=== PATIENT | female | born 1950 | race Caucasian/White ===

== ENCOUNTER → 2019-08-29 11:20 | Outpatient (CLI) | payer OTHER, SELFPAY ==
--- NOTE | 2019-08-29 11:23 | DI.RAD.S_ITS ---
PROCEDURE: XR HIP W PEL IF DONE LT MIN 4V INDICATIONS: Left greater than right hip pain TECHNIQUE: AP pelvis with lateral view(s) of the bilateral hip(s). COMPARISON: None. FINDINGS: Bones: No acute displaced fractures or dislocations. There is subtle buttressing along the left medial femoral neck. Pelvic ring appears intact. Moderate left femoral acetabular joint space loss, mainly along the superomedial aspect. Mild subcortical sclerosis along the acetabulum and moderate femoral head spurs. Mild superior joint space loss and mild marginal spurs in the right femoral acetabular joint. No suspicious bony lesions. Soft tissues: The visualized bowel gas pattern is normal. No suspicious soft tissue calcifications. IMPRESSION: 1. Moderate arthritic changes in the left hip. 2. Mild arthritic changes of the right hip. 3. Subtle buttressing along the left medial femoral neck indicate healing insufficiency fracture. Consider MRI. Dictated by: Carolina Ruiz M.D. on 08/29/2019 at 12:40 Approved by: Carolina Ruiz M.D. on 08/29/2019 at 12:42
== END ==
PROVIDERS: Family Provider Physician Assistant Medical; PCP Physician Assistant Medical; Visit Provider Physical Medicine & Rehabilitation
DX: M25.552 Pain in left hip (principal); M25.551 Pain in right hip
CPT/HCPCS: 73522; 99213

== ENCOUNTER → 2019-11-07 15:26 | Outpatient (CLI) | payer OTHER, SELFPAY ==
--- NOTE | 2019-11-07 15:31 | DI.RAD.S_ITS ---
PROCEDURE: XR LUMBAR SPINE MIN 4V INDICATIONS: LBP and Right greater than left LE symptoms TECHNIQUE: 5 views of the lumbar spine were acquired. COMPARISON: None. FINDINGS: Bones: 5 nonrib-bearing vertebrae are present. There is normal bony alignment. No vertebral body compression fractures. No suspicious bony lesions. Note is made of mild degenerative disc disease with mild disc height reduction at L4-5 and moderate such degeneration at L5-S1. Facet osteoarthritis is prominent at L4-5 and L5-S1 with associated grade 1 anterolisthesis of L4 on L5 as a result of ligamentous laxity. Soft tissues: Overlying bowel gas pattern is normal. No suspicious soft tissue calcifications. Oblique images: No pars defects. IMPRESSION: No pars interarticularis defects are found, no recent prior trauma or old compression fracture is seen. Note is made of relatively mild degenerative disc disease along the lumbosacral spine except at L5-S1 where it is moderate. Facet osteoarthritis, however, is quite pronounced at the L45 and L5-S1 levels resulting in ligamentous laxity with anterolisthesis and likelihood of significant spinal and foraminal stenosis at L4-5 and also foraminal stenosis likely is present at L5-S1. Dictated by: Manuel Rodriguez M.D. on 11/07/2019 at 16:32 Approved by: Manuel Rodriguez M.D. on 11/07/2019 at 16:34
--- NOTE | 2019-11-07 15:31 | DI.MRI.S_ITS ---
PROCEDURE: MR LUMBAR SPINE WO CON INDICATIONS: LBP and Right greater than left LE symptoms TECHNIQUE: Noncontrast sagittal T1 spin echo and T2 fast echo, sagittal STIR, axial T1 and T2 fast spin echo through the lumbar spine. In cases with scoliosis, additional coronal T2 fast spin echo may be performed. COMPARISON: [facility], CR, XR LUMBAR SPINE MIN 4V, 11/07/2019, 15:57. FINDINGS: Image quality: Excellent. Alignment and Curvature: Grade 1 degenerative anterolisthesis of L4 on L5 measuring 5 mm secondary to facet arthropathy. Other vertebral bodies are normally aligned. Bone Marrow: Marrow is of normal overall signal. No acute vertebral body compression fractures. Spinal Cord: Conus medullaris terminates at the L1 level. Visualized cord demonstrates normal signal and size. Paraspinous Soft Tissues: No paravertebral masses. T12-L1: No canal stenosis or foraminal stenosis. L1-L2: Mild disc bulge. Mild facet hypertrophy. No canal stenosis or foraminal stenosis. L2-L3: Minimal disc bulge. Mild facet hypertrophy. No canal stenosis or significant foraminal stenosis. L3-L4: Mild disc bulge. Mild facet ligament hypertrophy. No canal stenosis or foraminal stenosis. L4-L5: Moderate disc height loss. Prominent bilateral facet hypertrophy. Mild degenerative anterolisthesis of L4 on L5 measuring 5 mm. Moderate canal stenosis. Mild to moderate right foraminal narrowing. There is a small left facet joint cyst in the left foramen which is impinging on the left L4 nerve root in the foramen. Reference image 13/2 (T2 sagittal sequence) and image 20/4 (T2 axial sequence) L5-S1: Severe disc height loss and disc degeneration. Minimal central posterior disc protrusion. No canal stenosis. Mild facet hypertrophy. Mild bilateral foraminal narrowing. IMPRESSION: 1. At L4-L5, there is multifactorial moderate canal stenosis. Additionally, there is a small left foraminal facet joint cyst impinging on the left L4 nerve root in the left foramen. 2. Multilevel facet arthropathy, prominent at L4-L5. Dictated by: Edvin Sal M.D. on 11/07/2019 at 16:52 Approved by: Edvin Sal M.D. on 11/07/2019 at 16:59
== END ==
PROVIDERS: Family Provider Physician Assistant Medical; PCP Physician Assistant Medical; Referring Provider Physical Medicine & Rehabilitation; Visit Provider Physical Medicine & Rehabilitation
DX: M54.5 Low back pain (principal); M43.16 Spondylolisthesis, lumbar region; M47.26 Other spondylosis with radiculopathy, lumbar region; M47.27 Other spondylosis with radiculopathy, lumbosacral region; M48.061 Spinal stenosis, lumbar region without neurogenic claudication; M51.16 Intervertebral disc disorders with radiculopathy, lumbar region; M51.17 Intervertebral disc disorders with radiculopathy, lumbosacral region
CPT/HCPCS: 72110; 72148

== ENCOUNTER → 2020-03-03 09:56 | Outpatient (CLI) | payer OTHER, SELFPAY ==
[2020-03-04 19:44] LABS: COVID19 Sendout Not Detected (Not Detect)
== END ==
PROVIDERS: Family Provider Physician Assistant Medical; PCP Physician Assistant Medical; Visit Provider Nurse Practitioner
DX: Z01.812 Encounter for preprocedural laboratory examination (principal)
CPT/HCPCS: 87635

== ENCOUNTER 2020-03-06 10:23 | Outpatient (CLI) | payer OTHER, SELFPAY ==
[2020-03-06] VITALS (9 sets, daily range): BP systolic 102–137; BP diastolic 50–82; PULSE 70–91; RESP 16; TEMP 36.3; O2SAT 95–100
--- NOTE | 2020-03-06 10:24 | DI.RAD.S_ITS ---
PROCEDURE: PAIN L/S TRANSFORAMINAL INJECT INDICATIONS: SPONDYLOSIS FINDINGS: Fluoroscopic spot filming was performed to verify placement of spinal needles at the left L4-5 neural foraminal level(s), as labeled on the films. Appropriate location(s) of the needle tip(s) was confirmed by injection of iodinated contrast. IMPRESSION: Successful left L4-5 neuroforaminal needle tip localization for epidural steroid injection. Dictated by: Manuel Rodriguez M.D. on 03/06/2020 at 14:43 Approved by: Manuel Rodriguez M.D. on 03/06/2020 at 14:43
[2020-03-06] MEDS: MIDAZOLAM 5 MG/5 ML VIAL IV (12:15)
[2020-03-06] MEDS: fentaNYL 100 MCG/2 ML INJ 50 MCG IV (12:16)
[2020-03-06] MEDS: BUPIVACAINE 0.25% (PF) VIAL 2 ML INJ (12:21)
[2020-03-06] MEDS: BETAMETHASONE 30 MG/5 ML MDV 6 MG INJ (12:22)
[2020-03-06] MEDS: DEXAMETHASONE 10 MG/ML VIAL 20 MG INJ (12:22)
[2020-03-06] MEDS: IOPAMIDOL 15 ML VIAL 3 ML INJ (12:22)
--- NOTE | 2020-03-06 12:26 | PC.NURSE ---
ASSISTING PT OFF TABLE AND TRANSPORTING TO POST PROC AREA IN STABLE CONDITION. PASSING RN CARE OF PT OFF TO DALILA NOEL.
--- NOTE | 2020-03-06 12:36 | P.PCN_ITS ---
Procedures Date/Time Date of procedure: 03/06/20 Time of procedure: 12:36 General Procedure description: PREOP DIAGNOSIS 1. FORMAINAL STENOSIS WITH LE SYMPTOMS POST OP DIAGNOSIS 1. FORMAINAL STENOSIS WITH LE SYMPTOMS PROCEDURES 1. FLUOROSCOPICALLY GUIDED CONTRAST CONTROLLED TRANSFORAMINAL EPIDURAL STEROID INJECTION - LEFT L4/5 PHYSICIAN: Jose Mckeon DO INDICATIONS: Maryjane is referred by HARDIK Estrella for treatment of Foraminal Stenosis with Left LE Symptoms FINDINGS Foraminal Nerve Root Compression secondary to disc disease and facet hypertrophy DESCRIPTION OF PROCEDURE: Following review of allergy and review of potential side effects and complications, including, but not necessarily limited to, infection, allergic reaction, local tissue breakdown, stroke, temporary or permanent nerve injury, paralysis, and possible , the patient indicated that the patient understood and agreed to proceed. An informed consent document was signed by the patient, witnessed by a nurse, and placed in the patient's chart. Additionally, other treatment options including medications, modalities, and physical therapy were reviewed with the patient. After review of previous anaesthesic history and IV conscious sedation the patie nt was deemed safe to proceed with todays procedure with IV conscious sedation as ASA class II designation. Safety time-out was performed to confirm patient ID, procedure to be performed and site of procedure. IV sedation was accomplished with a combination of 2mg of Versed and 50mcg of Fentanyl administered by the RN after DO order, titrated to patient comfort during the course of the procedure while the patient remained responsive to all verbal commands In the prone position following sterile prep and drape of the lumbar region, the left L4/5 posterior neuroforamen was identified fluoroscopically. The skin was anesthetized via a 25-gauge 1.5-inch needle with 1% lidocaine solution. At this point, a 25-gauge 3.5-inch spinal needle was atraumatically introduced and advanced under fluoroscopic guidance through the posterior left L4/5 neuroforamen to approximately the anterior aspect of the canal. Depth was confirmed on lateral view. Following negative aspiration, injection of appr oximately 1.5 cc of Isovue 200 under live fluoroscopy in the AP view confirmed excellent flow along the nerve root, into the epidural space without vascular or intrathecal uptake observed Radiological data, including multiple fluoroscopic views of the lumbosacral spine, reveal a spinal needle at the left L4/5 posterior neuroforamen. Subsequent views show flow of contrast material flowing superiorly and inferiorly along the nerve root confirming epidural flow. Subsequently, a test dose of 1.5 cc of 1% lidocaine solution was administered and patient was observed for two minutes for signs or symptoms of complications, including abdominal pain, shortness of breath, bilateral upper or lower extremity weakness, nausea and vomiting, prior to steroid injection. At this point, a total of 3cc or 20mg of dexamethasone and 6mg of betamethasone was injected without incident. The procedure tolerated the procedure well without signs or symptoms of complications prior to transfer to the recovery area continued monitoring without incident. The patient was then transferred to the recovery area where they were observed for an appropriate time after the injection. The patient reported a VAS score of 7 prior to the procedure and a post- procedure VAS of 0. Total Fluoroscopy Time: seconds Total Conscious Sedation Time: 24min POST OP INSTRUCTIONS The patient was provided a Pain Log to continue to record their response to the target-specific procedure prior to follow-up visit with their referring physician. Additionally, specific post-injection care instructions and a contact number to our office were provided if concerns arise regarding possible complications associated with the procedure are suspected. Jose Mckeon DO Complications: none
--- NOTE | 2020-03-06 12:48 | PC.NURSE ---
pt arrived to pre proc room in stable condition. Minimal transfer from wc to chair. Monitoring resumed by this RN
== END 2020-03-06 12:58 | disposition home or self-care (01) ==
PROVIDERS: Family Provider Physician Assistant Medical; PCP Physician Assistant Medical; Referring Provider Physical Medicine & Rehabilitation; Visit Provider Physical Medicine & Rehabilitation
DX: M48.061 Spinal stenosis, lumbar region without neurogenic claudication (principal); M51.16 Intervertebral disc disorders with radiculopathy, lumbar region
CPT/HCPCS: 64483; 99152; J0702; J1100; J2250; J3010

== ENCOUNTER → 2020-05-10 08:45 | Outpatient (CLI) | payer OTHER, SELFPAY ==
[2020-05-11 06:20] LABS: COVID19 Sendout Not Detected (Not Detect)
== END ==
PROVIDERS: Family Provider Physician Assistant Medical; PCP Physician Assistant Medical; Visit Provider Physician Assistant
DX: Z11.59 Encounter for screening for other viral diseases (principal)
CPT/HCPCS: 87635

== ENCOUNTER → 2020-05-13 14:17 | Outpatient (CLI) | payer OTHER, SELFPAY ==
[2020-05-13] VITALS (10 sets, daily range): BP systolic 116–142; BP diastolic 63–74; PULSE 62–72; RESP 12–19; TEMP 35.8; O2SAT 95–100
--- NOTE | 2020-05-13 14:18 | DI.RAD.S_ITS ---
PROCEDURE: PAIN L/S FACET INJ/BLK 1ST DINA COMPARISON: None. INDICATIONS: SPONDYLOSIS FINDINGS: Needle tip positioning on the right at the facet joint area of L4-5 and L5-S1 IMPRESSION: Successful needle tip localization for facet joint injection on the right at L4 through S1. Dictated by: Manuel Rodriguez M.D. on 05/13/2020 at 16:04 Approved by: Manuel Rodriguez M.D. on 05/13/2020 at 16:05
[2020-05-13] MEDS: fentaNYL 100 MCG/2 ML INJ 50 MCG IV (15:06)
[2020-05-13] MEDS: MIDAZOLAM 5 MG/5 ML VIAL IV (15:06)
[2020-05-13] MEDS: LIDOCAINE 1% 20 ML 10 ML INJ (15:17)
[2020-05-13] MEDS: IOPAMIDOL 15 ML VIAL 3 ML INJ (15:17)
[2020-05-13] MEDS: BUPIVACAINE 0.5% (PF) VIAL 5 ML INJ (15:17)
[2020-05-13] MEDS: BETAMETHASONE 30 MG/5 ML MDV 6 MG INJ (15:17)
--- NOTE | 2020-05-13 15:22 | P.PCN_ITS ---
Date/Time/Diagnoses Date of procedure: 05/13/20 Time of procedure: 15:22 Pre-procedure diagnosis: 1. FACET ARTHROPATHY 2. AXIAL LBP 3. MULTILEVEL DDD Post-procedure diagnosis: same Procedure Notes Procedure: 1. FLUOROSCOPICALLY GUIDED CONTRAST CONTROLLED FACET JOINT INJECTIONS BILATERAL L4/5, L5/S1 Indications: Maryjane is referred by LACHO Estrella for treatment of Axial LBP Physician: Jose Mckeon Total Fluoroscopy time (seconds): 13 Total sedation minutes: 9 Complications: none Procedure in detail & Post-procedure care: FINDINGS Multilevel Facet Arthropathy with Clinically significant axial LBP DESCRIPTION OF PROCEDURE Fluoroscopically guided, contrast-controlled bilateral L4/5, L5/S1 facet joint injections. Following review of allergy and review of potential side effects and complications, including, but not necessarily limited to, infection, allergic reaction, local tissue breakdown, stroke, temporary or permanent nerve injury, paralysis, and possible , the patient indicated that the patient understood and agreed to proceed. An informed consent document was signed by the patient, witnessed by a nurse, and placed in the patient's chart. Additionally, other treatment options including medications, modalities, and physical therapy were reviewed with the patient. After review of previous anaesthesic history and IV conscious sedation the patient was deemed safe to proceed with today?s procedure with IV conscious sedation as ASA class II designation. Safety time-out was performed to confirm patient ID, procedure to be performed and site of procedure. IV sedation was accomplished with a combination of 2mg of Versed and 50mcg of Fentanyl was administered by the RN after DO order, titrated to patient comfort during the course of the procedure while the patient remained responsive to all verbal commands In the prone position, following sterile prep and drape of the lumbar region, the posterior aspect of the L4/5, L5/S1 facet joints were identified fluoroscopically. The skin was anesthetized via a 25-gauge 1.5inch needle with 1% lidocaine solution into the corresponding facet joints. At this point, a 22- gauge 3.5-inch spinal needle was atraumatically introduced and advanced under fluoroscopic guidance into the corresponding facet joints. Following negative aspiration, injections of approximately 0.2cc of Isovue 200 confirmed intera rticular placement without vascular uptake. The identical procedure was then performed at the L4/5, L5/S1 facet joints on the left. Radiological data, including multiple fluoroscopic views of the lumbosacral spine, reveal a spinal needle at the L4/5, L5/S1 facet joints bilaterally. Subsequent views show flow of contrast material both superiorly and inferiorly within the joint space without vascular or intrathecal uptake. At this point, a total of 0.5cc including a mixture of 0.25cc Marcaine and 0.25cc betamethasone was injected without complication into each of the corresponding facet joints. The patient tolerated the procedure well without signs or symptoms of complications prior to transfer to the recovery area continued monitoring without incident. The patient was then transferred to the recovery area where they were observed for an appropriate period of time after the injection. The patient reported a VAS score of 7 prior to the procedure and a post- procedure VAS of 0. POST OP INSTRUCTIONS The patient was provided a Pain Log to continue to record their response to the target-specific procedure prior to follow-up visit with their referring physician. Additionally, specific post-injection care instructions and a contact number to our office were provided if concerns arise regarding possible complications associated with the procedure are suspected.
== END ==
PROVIDERS: Family Provider Physician Assistant Medical; PCP Physician Assistant Medical; Referring Provider Physician Assistant Medical; Visit Provider Physical Medicine & Rehabilitation
DX: M47.816 Spondylosis without myelopathy or radiculopathy, lumbar region (principal); M47.817 Spondylosis without myelopathy or radiculopathy, lumbosacral region; M54.5 Low back pain; M51.36 Other intervertebral disc degeneration, lumbar region; M51.37 Other intervertebral disc degeneration, lumbosacral region
CPT/HCPCS: 64493; 64494; 99152; J0702; J1100; J2250; J3010

== ENCOUNTER → 2020-08-04 10:19 | Outpatient (CLI) | payer OTHER, SELFPAY ==
[2020-08-04 12:01] LABS: COVID19 -Nasal RAPID Negative (Negative)
== END ==
PROVIDERS: Family Provider Physician Assistant Medical; PCP Physician Assistant Medical; Visit Provider Physician Assistant
DX: Z11.59 Encounter for screening for other viral diseases (principal)
CPT/HCPCS: 87635

== ENCOUNTER 2020-08-05 12:43 | Outpatient (CLI) | payer OTHER, SELFPAY ==
[2020-08-05] VITALS (11 sets, daily range): BP systolic 99–129; BP diastolic 54–67; PULSE 79–92; RESP 15–22; TEMP 36.2; O2SAT 94–98
--- NOTE | 2020-08-05 12:44 | DI.RAD.S_ITS ---
PROCEDURE: PAIN L/S FACET INJ/BLK 1ST DINA COMPARISON: [facility], XA, PAIN L/S FACET INJ/BLK 1ST DINA, 05/13/2020, 15:09. INDICATIONS: SPONDYLOSIS FINDINGS: There is normal needle tip localization for bilateral L4, L5, and S1 medial branch block procedures. IMPRESSION: Successful needle tip localizations for 3 levels of medial branch block procedures, performed bilaterally, 6 total procedures. Dictated by: Manuel Rodriguez M.D. on 08/05/2020 at 14:43 Approved by: Manuel Rodriguez M.D. on 08/05/2020 at 14:44
[2020-08-05] MEDS: fentaNYL 100 MCG/2 ML INJ 50 MCG IV (13:41)
[2020-08-05] MEDS: MIDAZOLAM 5 MG/5 ML VIAL IV (13:41)
[2020-08-05] MEDS: BUPIVACAINE 0.5% (PF) VIAL 5 ML INJ (13:45)
[2020-08-05] MEDS: LIDOCAINE 1% 20 ML 10 ML INJ (13:45)
[2020-08-05] MEDS: IOPAMIDOL 15 ML VIAL 3 ML INJ (13:46)
--- NOTE | 2020-08-05 14:00 | PM.PROC.IR.1 ---
Date/Time/Diagnoses Date of procedure: 08/05/20 Time of procedure: 14:00 Pre-procedure diagnosis: 1. FACET ARTHROPATHY Post-procedure diagnosis: same Procedure Notes Procedure: 1. BILATERAL- L4, L5 and S1 DIAGNOSTIC MB BLOCKS with LA Anesthetic Indications: Maryjane is referred by LACHO Estrella for treatment of Bilateral Axial LBP. Physician: Jose Mckeon Total Fluoroscopy time (seconds): 14 Total sedation minutes: 12 Complications: none Procedure in detail & Post-procedure care: DESCRIPTION OF PROCEDURE Fluoroscopically guided, contrast-controlled bilateral L4, L5 and S1 medial branch blocks with 0.5cc of 0.5% Marcaine. Following review of allergy and review of potential side effects and complications, including, but not necessarily limited to, infection, allergic reaction, local tissue breakdown, nerve injury, paralysis, stroke and possible , the patient indicated that the patient understood and agreed to proceed. An informed consent document was signed by the patient, witnessed by a nurse, and placed in the patient's chart. After review of previous anaesthesic history and IV conscious sedation the patient was deemed safe to proceed with today's procedure with IV conscious sedation as ASA class II designation. Safety time-out was performed to confirm patient ID, procedure to be performed and site of procedure. IV sedation was accomplished with a combination of 2mg of Versed and 50mcg of Fentanyl was administered by the RN after DO order, titrated to patient comfort during the course of the procedure while the patient remained responsive to all verbal commands In the prone position, following sterile prep and drape of the lumbar region, the right L4, L5 and S1 anatomical location of the medial branch of the dorsal ramus was identified fluoroscopically. Subsequently an anesthetic skin wheal using 1% lidocaine solution was initiated at each of the anatomical spots. Subsequently then a 22-gauge 3.5-inch spinal needle was atraumatically introduced and advanced under fluoroscopic guidance at each of the corresponding sites at the right L4, L5 and S1 MB. After negative aspiration, 0.2cc of Isovue 200 was injected, confirming placement without vascular or intrathecal uptake. Subsequently then 0.5cc of 0.5% Marcaine solution was injected at each of the corresponding sites at the right L4, L5 and S1 medial branch locations. The identical procedure was replicated on the left. The patient tolerated the procedure well without signs or symptoms of complications prior to transfer to the recovery area continued monitoring without incident. Post-procedure, the patient was monitored initiating provocative activities to measure the amount of relief from block of the facetogenic pain. The patient reported a VAS of 7 prior to the procedure and a post-procedure VAS of 1. It has been a pleasure to assist in the diagnostic and therapeutic care of your patient. POST OP INSTRUCTIONS The patient was provided with a Pain Log to complete over the next several hours and subsequent days prior to the patient's follow up with the ordering physician. 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 The patient is aware, was provided, once again, with a Pain Log and will follow up with the referring physician for review and clinical correlation
== END 2020-08-05 14:25 | disposition home or self-care (01) ==
LOC: RAD 12:43
PROVIDERS: Family Provider Physician Assistant Medical; PCP Physician Assistant Medical; Referring Provider Physician Assistant Medical; Visit Provider Physical Medicine & Rehabilitation
DX: M47.816 Spondylosis without myelopathy or radiculopathy, lumbar region (principal); M47.817 Spondylosis without myelopathy or radiculopathy, lumbosacral region; M54.5 Low back pain
CPT/HCPCS: 64493; 64494; 99152; J2250; J3010

== ENCOUNTER → 2020-11-24 13:46 | Outpatient (CLI) | payer OTHER, SELFPAY ==
[2020-11-24 16:40] LABS: COVID19 -Nasal RAPID Negative (Negative)
== END ==
PROVIDERS: Family Provider Physician Assistant Medical; PCP Physician Assistant Medical; Visit Provider Physical Medicine & Rehabilitation
DX: Z20.822 Contact with and (suspected) exposure to COVID-19 (principal)
CPT/HCPCS: 87635; C9803

== ENCOUNTER 2020-11-25 10:50 | Outpatient (CLI) | payer OTHER, SELFPAY ==
[2020-11-25] VITALS (11 sets, daily range): BP systolic 94–133; BP diastolic 54–71; PULSE 68–95; RESP 12–18; TEMP 36.7; O2SAT 94–99
--- NOTE | 2020-11-25 10:55 | DI.RAD.S_ITS ---
PROCEDURE: PAIN L/S MED/LAT N RFA BILAT INDICATIONS: SPONDYLOSIS COMPARISON: [facility], , PAIN L/S FACET INJ/BLK 1ST DINA, 08/05/2020, 13:44. FINDINGS: Fluoroscopic spot filming was performed to verify placement of spinal needles at the L4, L5, and S1 levels on both sides, as labeled on the films. IMPRESSION: Intraprocedural examination within normal limits. Dictated by: Richardson Briceno M.D. on 11/25/2020 at 13:50 Approved by: Richardson Briceno M.D. on 11/25/2020 at 13:51
[2020-11-25] MEDS: fentaNYL 100 MCG/2 ML INJ 50 MCG IV (11:41)
[2020-11-25] MEDS: MIDAZOLAM 5 MG/5 ML VIAL IV (11:41)
[2020-11-25] MEDS: BUPIVACAINE 0.5% (PF) VIAL 5 ML INJ (11:48)
[2020-11-25] MEDS: LIDOCAINE 1% 20 ML 10 ML INJ (11:48)
--- NOTE | 2020-11-25 12:18 | P.PCN_ITS ---
Date/Time/Diagnoses Date of procedure: 11/25/20 Time of procedure: 12:19 Pre-procedure diagnosis: 1. RECALCITRANT FACET ARTHROPATHY Post-procedure diagnosis: same Procedure Notes Procedure: 1. BILATERAL L4 AND L5 MEDIAL BRANCH RADIOFREQUENCY NEUROTOMY AND S1 DORSAL RAMUS BRANCH RADIOFREQUENCY NEUROTOMY Indications: Maryjane is referred by LACHO Estrella for treatment of facet arthropathy. Physician: Jose Mckeon Total Fluoroscopy time (seconds): 16 Total sedation minutes: 31 Complications: none Procedure in detail & Post-procedure care: DESCRIPTION OF PROCEDURE Bilateral L4 and L5 medial branch radiofrequency neurotomy and bilateral S1 dorsal ramus radiofrequency neurotomy under fluoroscopy with conscious sedation. The patient is well known to this clinic having undergone previous facet injections with good but temporary relief. The patient has experienced appropriate, concordant relief with previous facet and median branch blocks but the patient's pain has been recalcitrant to further conservative measures. Therefore, based upon the patient's relief and persistent symptoms, the patient is considered an appropriate candidate for facet rhizotomy. All of the patient's questions regarding the risks versus benefits of the procedure, including, but not limited to, bleeding, infection, temporary as well as lasting nerve injury, paralysis, stroke, and , as well treatment alternatives were answered to satisfaction. After obtaining informed consent, denial of pertinent drug allergies, as well as being made aware of the potential risks of bleeding, infection, spinal cord trauma, paralysis, temporary and permanent nerve damage, seizure, stroke, and possible , the patient was brought to the fluoroscopy suite and positioned prone on the fluoroscopy table. The lumbar region was prepped with Betadine and covered with a fenestrated drape in the usual sterile fashion. Appropriate monitors applied including pulse oximeter, pulse, and blood pressure for regular monitoring throughout the procedure. After review of previous anaesthesic history and IV conscious sedation the patient was deemed safe to proceed with today's procedure with IV conscious sedation as ASA class II designation. Safety time-out was performed to confirm patient ID, procedure to be performed and site of procedure. IV sedation was accomplished with a combination of 2mg of Versed and 50mcg of Fentanyl administered by the RN after DO order, titrated to patient comfort during the course of the procedure while the patient remained responsive to all verbal commands. After local infiltration using 1% lidocaine, under fluoroscopic guidance, a 10- cm RF insulated needle with a 10-mm active tip was positioned parallel to the junction of the right sacral ala and the superior articulating process where the S1 dorsal ramus resides. Needle placement was confirmed with motor stimulation of .5v on the right which produced local stimulation without radicular component. The stimulation was then increased to 2v with, once again, only local multifidus stimulation without radicular component. The needle was then removed and the identical procedure was performed along the length of the right L5 medial branch with motor stimulation at .7v on the right. The identical procedure was once again performed along the length of the right L4 medial branch with motor stimulation of .5v on the right. The medial branches were then anesthetised with 0.5% Marcaine. This was then followed by two discreet lesions performed at 80 degrees Celsius for 90 seconds each. The identical procedure was repeated on the left. The patient tolerated the procedure well without signs or symptoms of complications prior to transfer to the recovery area continued monitoring without incident. The patient was then transferred to the recovery area where they were observed for an appropriate period of time after the injection. The patient reported a VAS score of 9 prior to the procedure and a post-procedure VAS of 0. POST OP INSTRUCTIONS The patient was provided a Pain Log to continue to record the patient's response to the target-specific procedure prior to the patient's follow-up visit with the referring physician. Additionally, specific post-injection care instructions and a contact number to our office were provided if concerns arise regarding possible complications associated with the procedure are suspected.
== END 2020-11-25 12:44 | disposition home or self-care (01) ==
LOC: RAD 10:53
PROVIDERS: Family Provider Physician Assistant Medical; PCP Physician Assistant Medical; Referring Provider Physical Medicine & Rehabilitation; Visit Provider Physical Medicine & Rehabilitation
DX: M47.816 Spondylosis without myelopathy or radiculopathy, lumbar region (principal); M47.817 Spondylosis without myelopathy or radiculopathy, lumbosacral region
CPT/HCPCS: 64635; 64636; 99152; 99153; J2250; J3010

== ENCOUNTER → 2020-12-30 13:05 | Outpatient (CLI) | payer OTHER, SELFPAY ==
[2020-12-30 15:33] LABS: COVID19 -Nasal RAPID Negative (Negative)
== END ==
PROVIDERS: Family Provider Physician Assistant Medical; PCP Physician Assistant Medical; Visit Provider Physical Medicine & Rehabilitation
DX: Z20.822 Contact with and (suspected) exposure to COVID-19 (principal)
CPT/HCPCS: 87635; C9803

== ENCOUNTER 2021-01-01 08:52 | Outpatient (CLI) | payer OTHER, SELFPAY ==
[2021-01-01] VITALS (10 sets, daily range): BP systolic 96–139; BP diastolic 55–79; PULSE 71–76; RESP 12–24; TEMP 36.6; O2SAT 89–99
--- NOTE | 2021-01-01 08:57 | DI.RAD.S_ITS ---
PROCEDURE: PAIN C/T INTERLAMINAR INJECT INDICATIONS: SPINAL STENOSIS COMPARISON: [facility], , PAIN L/S MED/LAT N RFA BILAT, 11/25/2020, 11:48. FINDINGS: Fluoroscopic spot filming was performed to verify placement of a spinal needle at the C6-C7 level, as labeled on the films. Appropriate location of the needle tip was confirmed by injection of iodinated contrast. IMPRESSION: No significant intraprocedural abnormality. Dictated by: Richardson Briceno M.D. on 01/01/2021 at 9:45 Approved by: Richardson Briceno M.D. on 01/01/2021 at 9:46
[2021-01-01] MEDS: MIDAZOLAM 5 MG/5 ML VIAL IV (09:50)
[2021-01-01] MEDS: fentaNYL 100 MCG/2 ML INJ 50 MCG IV (09:50)
[2021-01-01] MEDS: IOPAMIDOL 15 ML VIAL 3 ML INJ (09:56)
[2021-01-01] MEDS: BUPIVACAINE 0.25% (PF) VIAL 2 ML INJ (09:56)
[2021-01-01] MEDS: DEXAMETHASONE 10 MG/ML VIAL 30 MG INJ (09:56)
--- NOTE | 2021-01-01 10:05 | P.PCN_ITS ---
Date/Time/Diagnoses Date of procedure: 01/01/21 Time of procedure: 10:05 Pre-procedure diagnosis: 1. CERVICAL STENOSIS, 2. CERVICAL HNP WITH UPPER EXTREMITY RADICULAR FEATURES Post-procedure diagnosis: same Procedure Notes Procedure: 1. FLUORSCOPICALLY GUIDED CONTRAST CONTROLLED INTERLAMINAR EPIDURAL STEROID INJECTION - C6/7 TL SAÚL Indications: Maryjane is referred by LACHO Estrella for treatment of Cervical HNP with Upper Extremity Paresthesias. Physician: Jose Mckeon Total Fluoroscopy time (seconds): 23 Total sedation minutes: 13 Complications: none Procedure in detail & Post-procedure care: FINDINGS Cervical Stenosis due to disc deterioration and nerve root irritation and nerve root irritation DESCRIPTION OF PROCEDURE Fluoroscopically guided, contrast-controlled C6/7 translaminar epidural steroid injection with conscious sedation. Following review of allergy and review of potential side effects and complications, including, but not necessarily limited to, infection, allergic reaction, local tissue breakdown, temporary as well as permanent nerve injury, stroke, paralysis, and possible , the patient indicated that patient understood and agreed to proceed. An informed consent document was signed by the patient, witnessed by a nurse, and placed in the patient's chart. Additionally, other treatment options including modalities, medications, and physical therapy were reviewed with the patient. After review of previous anaesthesic history and IV conscious sedation the patient was deemed safe to proceed with today?s procedure with IV conscious sedation as ASA class II designation. Safety time-out was performed to confirm patient ID, procedure to be performed and site of procedure. IV sedation was accomplished with a combination of 2mg of Versed and 50mcg of Fentanyl administered by the RN after DO order, titrated to patient comfort during the course of the procedure while the patient remained responsive to all verbal commands. In the prone position, following sterile prep and drape of the cervical region, the C6/7 translaminar space was identified fluoroscopically. The skin was anesthetized via a 25-gauge 1.5-inch needle with 1% lidocaine solution. At this point, a 25-gauge, 2.5-inch short bevel spinal needle was atraumatically introduced and advanced under fluoroscopic guidance into epidural space at the C6/7 translaminar space. Depth was confirmed on lateral view. Radiological data, including multiple fluoroscopic views of the cervical spine, reveal a spinal needle at the C6/7 translaminar space. Lateral views then show placement of the needle in the epidural space. Subsequent views show contrast material flowing superiorly and inferiorly in the epidural space. DSA fluoroscopy with live contrast injection, once again, confirmed no vascular or intrathecal uptake. At this point, using loss of resistance technique with saline and air, the epidural space was entered. Following negative aspiration, injection of rossy roximately 1.5 cc of Isovue-200 with live fluoroscopy in the AP view confirmed epidural flow in the epidural space without vascular or intrathecal uptake observed. Subsequently, a test dose of 1 cc of 1% lidocaine solution was injected and patient was observed for two minutes without signs or symptoms of complications, including abdominal pain, shortness of breath, bilateral upper or lower extremity weakness, nausea and vomiting, prior to steroid injection. At this point, 3cc or 30mg of dexamethasone was then injected without incident. The patient tolerated the procedure well without signs or symptoms of complications prior to being transferred to the recovery area for further monitoring, The patient was then transferred to the recovery area where they were observed for an appropriate period of time after the injection. The patient reported a VAS score of 6 prior to the procedure and a post-procedure VAS of 0. POST OP INSTRUCTIONS The patient was provided a Pain Log to continue to record their response to the target-specific procedure prior to follow-up visit with the referring provider. Additionally, specific post-injection care instructions and a contact number to our office were provided if concerns arise regarding possible complications associated with the procedure are suspected.
== END 2021-01-01 10:15 | disposition home or self-care (01) ==
PROVIDERS: Family Provider Physician Assistant Medical; PCP Physician Assistant Medical; Referring Provider Physical Medicine & Rehabilitation; Visit Provider Physical Medicine & Rehabilitation
DX: M48.02 Spinal stenosis, cervical region (principal); M50.123 Cervical disc disorder at C6-C7 level with radiculopathy
CPT/HCPCS: 62321; 99152; J1100; J2250; J3010

== ENCOUNTER → 2021-04-15 11:16 | Outpatient (CLI) | payer OTHER, SELFPAY ==
[2021-04-15 11:57] LABS: Bacteria Urine None Seen; RBC Urine None Seen (0-5/HPF)
[2021-04-15 12:37] LABS: Add Manual Diff / Slide Review NO; Basophils Absolute Auto 0 /uL (0-100); Basophils Percent Auto 0.3 % (0-2); Eosinophils Absolute Auto 100 /uL (0-450); Eosinophils Percent Auto 2.4 % (2-4); Hematocrit 40.7 % (36-46); Hemoglobin 13.6 g/dL (12.0-16.0); Lymphocytes Absolute Auto 1800 /uL (1100-4500); Lymphocytes Percent Auto 28.8 % (25-40); Mean Corpuscular HGB Conc 33.5 % (30-36); Mean Corpuscular Hemoglobin 32.7 PG (26-34); Mean Corpuscular Volume 97.7 fL (80-100); Monocytes Absolute Auto 500 /uL (0-900); Monocytes Percent Auto 7.9 % (3-14); Neutrophils Absolute Auto 3700 /uL (1500-7000); Neutrophils Percent Auto 60.6 % (50-75); Platelet Count 190 X10^3/uL (150-400); Red Blood Cell Count 4.17 X10^6/uL (4.0-5.2); Red Cell Distribution Width 13.3 % (11.6-14.8); White Blood Cell Count 6.1 X10^3/uL (4.5-11.0)
[2021-04-15 12:47] LABS: Hemoglobin A1C% w Est Avg Glu 5.5 % (4.0-6.0)
[2021-04-15 13:00] LABS: BUN Creatinine Ratio 39.3 (6-22); Blood Urea Nitrogen 22 mg/dL (7-17); Calcium 9.8 mg/dL (8.4-10.2); Carbon Dioxide 28 mmol/L (22-32); Chloride 107 mmol/L (98-107); Estimated Glomerular Filt Rate > 60.0 mL/min (>60); Glucose 97 mg/dL (80-110); HEMOLYSIS 20 (0-50); Potassium 4.4 mmol/L (3.4-5.1); Sodium 141 mmol/L (137-145)
[2021-04-15 13:15] LABS: Appearance Urine UA CLEAR; Bilirubin Urine UA NEGATIVE (NEGATIVE); Color Urine UA YELLOW; Glucose Urine UA NEGATIVE (Negative); Ketones Urine UA NEGATIVE (NEGATIVE); Leukocyte Esterase Urine UA TRACE (NEGATIVE); Nitrite Urine UA NEGATIVE (Negative); Occult Blood Urine UA NEGATIVE (Negative); Protein Urine UA NEGATIVE (Negative); Specific Gravity Urine UA 1.015 (1.000-1.035); Urobilinogen Urine UA 0.2 E.U./dL (0.2)
[2021-04-15 13:35] LABS: Culture Indicated Urine Specimen Cultured; WBC Urine 5-10/HPF (0-5/HPF)
== END ==
PROVIDERS: Family Provider Physician Assistant Medical; PCP Physician Assistant Medical; Referring Provider Orthopaedic Surgery; Visit Provider Orthopaedic Surgery
DX: Z01.818 Encounter for other preprocedural examination (principal); R73.9 Hyperglycemia, unspecified; Z01.812 Encounter for preprocedural laboratory examination; N39.0 Urinary tract infection, site not specified
CPT/HCPCS: 36415; 80048; 81001; 83036; 85025; 87077; 87086; 93005

== ENCOUNTER → 2021-05-06 09:58 | Outpatient (CLI) | payer OTHER, SELFPAY ==
[2021-05-06 11:11] LABS: COVID19 -Nasal RAPID Negative (Negative)
== END ==
PROVIDERS: Family Provider Physician Assistant Medical; PCP Physician Assistant Medical; Visit Provider Physician Assistant
DX: Z20.822 Contact with and (suspected) exposure to COVID-19 (principal); Z01.812 Encounter for preprocedural laboratory examination
CPT/HCPCS: 87635

== ENCOUNTER 2021-05-08 11:25 | Observation (INO) | payer OTHER, SELFPAY ==
[2021-04-30 09:51] VITALS: BMI 21.4
[2021-05-07] VITALS (15 sets, daily range): BP systolic 109–136; BP diastolic 48–73; PULSE 54–90; RESP 16–18; TEMP 35.7–36.9; O2SAT 94–99; BMI 21.4
--- NOTE | 2021-05-07 07:29 | DI.RAD.S_ITS ---
PROCEDURE: XR HIP W PEL IF DONE LT 2V INDICATIONS: left TRISTIN TECHNIQUE: AP pelvis and lateral view of the left hip acquired. COMPARISON: [facility], CR, XR PELVIS WITH BILATERAL LATERAL HIPS, 04/06/2021, 17:02. [facility], CR, [id number] W PEL IF PERFORMED, 05/07/2021, 11:54. FINDINGS: Bones: Patient is status post left hip arthroplasty, with hardware components in expected positions. The hip joint appears congruent. The visualized bony structures appear intact. There is severe narrowing of the right hip joint with near bone on bone contact, subchondral sclerosis and cystic change. Periarticular osteophyte formation is present. Soft tissues: Overlying postoperative changes are noted. No suspicious soft tissue densities. IMPRESSION: Expected immediate postoperative appearance of left hip arthroplasty. Dictated by: Roge Goldman [facility] Interpreted: Ananth Cat MD on 05/07/2021 at 14:52 Transcribed by: EVITA on 05/07/2021 at 14:53 Approved by: Kyrie Cat M.D. on 05/11/2021 at 9:38
[2021-05-07] MEDS: LACTATED RINGERS 1,000 ML 42 ML IV ×2 (09:05→11:43)
[2021-05-07] MEDS: VANCOMYCIN 1,000 MG/200 ML PIGGYBACK 200 MG IV (09:06)
[2021-05-07] MEDS: ACETAMINOPHEN 325 MG TABLET 975 MG PO (09:06)
[2021-05-07] MEDS: PREGABALIN 75 MG CAPSULE PO (09:07)
[2021-05-07] MEDS: CELECOXIB 200 MG CAPSULE PO (09:07)
--- NOTE | 2021-05-07 09:54 | PM.PREOP ---
Pre-operative Note COVID-19 COVID-19 status: Negative Interval Note History & Physical reviewed/Exam performed by Physician: Yes Changes to H&P: No
--- NOTE | 2021-05-07 10:21 | P.OP_ITS ---
Operative Date/Time/Diagnoses Date of procedure: 05/07/21 Time of procedure: 11:20 Pre-op diagnosis: Left hip osteoarthritis Post-op diagnosis: same Procedure & Clinicians Procedure: Left total hip arthroplasty anterior approach Same procedure as scheduled: Yes Indications: The patient has had progressively worsening left hip pain with radiographic changes consistent with arthritis. Non-operative management has failed and the patient has requested total hip replacement. The risks, benefits and alternatives to surgery were discussed with the patient prior to proceeding. Risks discussed included, but were not limited to, failure to relieve pain, leg length discrepancy, dislocation, stiffness, infection, nerve damage, deep venous thrombosis, pulmonary embolism, stroke, coma, heart attack, permanent paralysis and , as well as the potential need for eventual revision of the prosthetic. Surgeon: Josephine Fernandez Teacher Education Instructor: Azra He Anesthesia Type: General and Spinal Operative Notes Findings: Severe left hip osteoarthritis, soft bone, acceptable stability Closure Type: primary Specimen(s): none sent Prosthetic devices, grafts, tissues, transplants, or devices: Fernandez and Nephew anthology standard offset size 7 femur, size 52 cup, neutral poly liner, 36 by - 3 Oxinium femoral head, one 6.5 mm screw. Estimated Blood Loss (mL): 250 Blood products transfused: none Procedure in detail: The patient was brought to the operating room. Patient was carefully positioned in the supine position. Time-out was performed and antibiotics were given. Anesthesia was induced. She was positioned in the on the table in order to allow hyperextension of the hip. The left lower extremity was prepped and draped in a standard sterile fashion. An anterior left hip incision was made 1 fingerbreadth lateral to the anterior superior iliac spine and extended distally towards the greater trochanter. Dissection was carried out through skin and subcutaneous tissues. The skin and subcutaneous tissues were carefully injected with Lidocaine with epi. Superficial hemostasis was achieved. The fascia over the tensor fascia andrew was defined and incised with a knife. Two Allis clamps were used to grasp the fascia. Tensor fascia andrew was retracted laterally. A gelpi retractor was placed. Dissection was carried out down along the neck. The circumflex vessels were carefully identified and cauterized with the Aqua Mantis. There was good visualization of the femoral neck. A Cobra was placed superior to the neck and the gluteus fibers were carefully stripped from that superior aspect of the capsule. A 2nd retractor was placed along the inferior aspect of the neck. The rectus insertion along the capsule was partially released. A 3rd retractor that was then gently placed over the rim of the acetabulum under the rectus. Capsule was carefully incised and released from the intertrochanteric line circumferentially superior to the mid sagittal line and inferiorly to the mid sagittal line until the lesser trochanter was palpable. A tag stitch was placed both in the superior and inferior limb of the capsular insertion. Along the acetabulum capsule was also released up to the mid sagittal 12:00 position. A portion of the labrum was resected. A saw was used to perform an osteotomy at the level of the intertrochanteric line and the junction of the superior femoral neck leaving approximately 1 finger breath of residual inferior neck above the lesser trochanter. A 2nd cut was made along the femoral neck at the base of the head and a napkin ring of neck was removed. Corkscrew was placed in the femoral head and the head was removed without difficulty. Retractors were then repositioned around the acetabulum. Residual labrum was resected and additional osteophytes were removed. A reamer that was 4 mm below the templated size was placed by hand in the acetabulum and it was reamed to centralize the acetabulum. It was then reamed up to 2 under the templated size and fluoroscopy was brought in to confirm the position of the reaming and depth of reaming. I reamed 1 under the anticipated size. A trial cup was placed and noted that it was appropriately sized and fluoroscopy confirmed position and depth. The component was open and inserted without difficulty fluoroscopic imaging was used to confirm that the cup had been adequately seated and was well positioned. It was further stabilized with a single screw. Neutral poly liner was placed. The cup was tested and noted to be stable. Attention was then directed to the femur. The femur was gently hyperextended additional capsular release was performed as needed in order to allow adequate visualization of the proximal femur with elevation of the femur. Patient was placed in a hyperextended slightly adducted position with maximum external rotation. Box osteotome was used to check for any residual neck as well as sclerotic bone along the trochanter. Highspire pepper was placed in the femur. Additional broaching was performed. Canal finder was used to determine the alignment of the canal and position. Size 1 broach was placed. The canal was then appropriately broached up to the templated size as long as there was adequate stability of the broach and serial advancement of the broach without excessive impingement. Specific attention was directed at avoiding varus attempting to direct the distal aspect of the broach more anteriorly and avoiding excessive anteversion. Trial reduction showed acceptable range of motion, good stability, no posterior impingement, sabianist of leg length and appropriate lateral shuck. I also hyperflexed the hip and checked that there was no impingement anteriorly and there was good stability with flexion, adduction and internal rotation. Marcaine and Exparel were injected. The stem was placed without difficulty. Repeat trial reduction and x-ray showed acceptable overall position, length, and no evidence of the femoral fracture. Final head was placed. Wound was meticulously irrigated with normal saline. The hip was reduced and additional Exparel and Marcaine were injected. The capsule was closed with interrupted nonabsorbable sutures. The fascia of the tensor was closed with interrupted and running Vicryl. No drain was placed. Any tensor fascia andrew muscle that appeared to be contused or injured which was a minimal amount was carefully resected. Capsule around the tensor was injected with Exparel and Marcaine. The skin was closed with barbed stitches for the subcutaneous tissue and skin. We also used surgical glue. The wound was dressed sterilely. Brief Betadine soak was also used and was meticulously irrigated with normal saline. Patient was transferred to recovery room in satisfactory condition. Complications: none Post-operative Condition: stable Disposition: Acute Care Plan for aftercare: The patient will be maintained on a standard total hip replacement protocol with weight bearing as tolerated and anterior hip precautions. The patient will receive Aspirin and sequential compression devices for DVT prophylaxis. The patient will be discharged home when safe for the home environment.
[2021-05-07] MEDS: CEFAZOLIN 1 GM VIAL 2 GM IV ×2 (11:00→19:39)
--- NOTE | 2021-05-07 11:00 | DI.RAD.S_ITS ---
PROCEDURE: [id number] W PEL IF PERFORMED INDICATIONS: TOTAL HIP TECHNIQUE: AP pelvis with lateral view(s) of the left hip(s). COMPARISON: [facility], HOOD, XR HIP W PEL IF DONE DINA 3TO4V, 08/29/2019, 11:27. FINDINGS: There is expected intraoperative alignment of left hip arthroplasty. Dictated by: Josue Mills M.D. on 05/07/2021 at 14:51 Approved by: Josue Mills M.D. on 05/07/2021 at 14:53
[2021-05-07] MEDS: TRANEXAMIC ACID 1,000 MG VIAL 2000 MG INJ (11:07)
--- NOTE | 2021-05-07 11:30 | SUR.OPER ---
Supine on padded Hardy table with bilateral legs secured in padded positioning boots and suspended in positioning spars, operative leg in traction per surgeon. Head on one pillow. Arm on non-operative side secured on padded armboard <90 degrees abduction. Arm on operative side padded and resting across chest then secured with tape over sheet. Padded perineal post in place per surgeon.
[2021-05-07] MEDS: BUPIVACAINE 0.25% (PF) VIAL 30 ML INJ (11:40)
[2021-05-07] MEDS: EPINEPHrine 1 MG/ML SUBCUT (11:41)
--- NOTE | 2021-05-07 12:26 | PC.NURSE ---
Day shift: Pt not on AC unit at this time.
[2021-05-07] MEDS: OXYCODONE/ACETAMINOPHEN 5/325 TABLET 1 TAB PO (14:06)
--- NOTE | 2021-05-07 14:49 | PC.NURSE ---
Day shift: Pt on unit at approx 1450. She is A&Ox4. Anterior hips dressing is CDI. No drains or Griffiths. Oriented to room and call light. Bed alarm on. AGrees to let RN know when pain 4/10. Can wiggle bilat feet and toes and said she can feel touch there also. On unit at approx 1455.
[2021-05-07] MEDS: LACTATED RINGERS 1,000 ML 125 ML IV (15:45)
[2021-05-07] MEDS: ACETAMINOPHEN 325 MG TABLET 650 MG PO ×2 (15:46→20:48)
[2021-05-07] MEDS: OXYCODONE IR 5 MG TABLET PO ×2 (16:18→22:20)
[2021-05-07] MEDS: IBUPROFEN 400 MG TABLET PO ×2 (16:18→20:48)
[2021-05-07] MEDS: DOCUSATE 100 MG CAPSULE PO (20:48)
[2021-05-07] MEDS: ASPIRIN EC 81 MG TABLET PO (20:48)
[2021-05-08] MEDS: IBUPROFEN 400 MG TABLET PO ×3 (00:24→08:23)
[2021-05-08] MEDS: LACTATED RINGERS 1,000 ML 125 ML IV (00:26)
[2021-05-08] MEDS: CEFAZOLIN 1 GM VIAL 2 GM IV (02:53)
[2021-05-08] MEDS: OXYCODONE IR 5 MG TABLET PO ×2 (02:55→08:23)
[2021-05-08] MEDS: LEVOTHYROXINE 50 MCG TABLET PO (05:58)
[2021-05-08 06:00] VITALS: BP 115/68; PULSE 76; RESP 16; TEMP 35.9; O2SAT 97
--- NOTE | 2021-05-08 07:25 | P.DS_ITS ---
History of Present Illness History of Present Illness Date Patient Seen: 05/08/21 Time Patient Seen: 07:26 Chief complaint: left hip OA Narrative: The patient is complaining of mild pain today. She has not gotten up yet with physical therapy. Overall she has no complaints. If she does well today she would like to be discharged with her boyfriend and son to help her. Discharge Providers Provider Discharge Date: 05/08/21 Primary care physician: Kandis Estrella PA-C Consults: 05/07/21 07:29 Consult to Anesthesiology Routine Comment: Consulting Provider: Anesthesiologist Reason for consultation: Regional block for post operative pain control 05/07/21 14:48 Consult to Discharge Planning Routine Comment: Consult to Physical Therapy Evaluate & Treat Comment: Physician Instructions: post op TRISTIN protocol Consult to Respiratory Therapy Evaluate & Treat Comment: Physician Instructions: Evaluate and treat Discharge provider: Azra He PA-C Summary Hospital Course Discharge Diagnosis: Left hip osteoarthritis Hospital Course: Procedure: Left total hip arthroplasty anterior approach Same procedure as scheduled: Yes Indications: The patient has had progressively worsening left hip pain with radiographic changes consistent with arthritis. Non-operative management has failed and the patient has requested total hip replacement. The risks, benefits and alternatives to surgery were discussed with the patient prior to proceeding. Risks discussed included, but were not limited to, failure to relieve pain, leg length discrepancy, dislocation, stiffness, infection, nerve damage, deep venous thrombosis, pulmonary embolism, stroke, coma, heart attack, permanent paralysis and , as well as the potential need for eventual revision of the prosthetic. Surgeon: Josephine Fernandez Patient Access: Azra He Anesthesia Type: General and Spinal Operative Notes Findings: Severe left hip osteoarthritis, soft bone, acceptable stability Closure Type: primary Specimen(s): none sent Prosthetic devices, grafts, tissues, transplants, or devices: Fernandez and Nephew anthology standard offset size 7 femur, size 52 cup, neutral poly liner, 36 by - 3 Oxinium femoral head, one 6.5 mm screw. Estimated Blood Loss (mL): 250 Blood products transfused: none Status at Discharge Cognitive/behavioral status at discharge: oriented Functional status at discharge: uses cane/walker Overall status at discharge: patient is progressing back to baseline Exam Vital Signs (past 8 hours): - 05/07/21 23:30 05/08/21 06:00 Temperature 97.1 F L 96.7 F L Pulse Rate 80 76 Respiratory Rate 16 16 Blood Pressure 115/68 Pulse Oximetry 96 97 Oxygen Delivery Method Room Air Oxygen Flow Rate 0 Narrative Exam Narrative: Pleasant 71-year-old female, resting comfortably in bed, no acute distress. She is postop day 1 status post left anterior total hip arthroplasty. Incision is clean, dry, intact. Bilateral lower extremities with normal liver functions. Sensation is intact to light touch bilaterally in lower extremities. Both legs are warm and dry. Bilateral calves are soft, nontender to palpation [facility] Medical History Cervical spondylosis with radiculopathy Degenerative joint disease (DJD) of hip Easy bruisability Facet arthropathy, lumbar History of Mohs micrographic surgery for skin cancer Hypothyroid Left hip pain Lumbosacral spondylosis Osteoarthritis Rotator cuff impingement syndrome of left shoulder Seasonal allergies Spondylolisthesis at L4-L5 level Surgical History History of facelift History of tonsillectomy and adenoidectomy Social History household members: none Smoking Status: Former smoker alcohol intake: former Discharge Assessment & Plan Assessment and Plan Assessment: Stable status post left anterior total hip arthroplasty Plan of Treatment: Weight-bearing as tolerated with front wheeled walker. Maintain anterior hip precautions x6 weeks. Use aspirin 81 mg twice daily for 6 weeks to prevent blood clots. Discharge home today when cleared by Physical therapy Discharge Plan Discharge Plan Patient Disposition: Home Discharge orders & Medications Discharge Orders: Discharge (Order); Ordered 05/08/21 Ordered By: Azra He Prescriptions: New acetaminophen 500 mg capsule 500 mg PO Q4-5H MDD Max 6 tabs per day Qty: 90 RF: 0 aspirin 81 mg Tablet,Delayed Release (Dr/Ec) 81 mg PO BID Qty: 84 RF: 0 ibuprofen 400 mg Tablet See Rx Instructions .ROUTE .COMPLEX Qty: 90 RF: 0 oxycodone 5 mg Tablet 5 mg PO Q4-5H PRN (Reason: Moderate to severe pain) Qty: 20 RF: 0 Continued turmeric root extract 500 mg Capsule 500 mg PO DAILY RF: 0 pseudoephedrine HCl 30 mg Capsule 30 mg PO QD-BID PRN (Reason: seasonal allergies) RF: 0 vitamin B complex Capsule 1 cap PO DAILY RF: 0 levothyroxine 50 mcg Capsule 50 mcg PO DAILY RF: 0 krill oil 500 mg Capsule 500 mg PO DAILY RF: 0 ibuprofen 200 mg Tablet 200 mg PO Q4H PRN (Reason: Pain) RF: 0 magnesium oxide 400 mg magnesium Tablet 400 mg PO DAILY RF: 0 cholecalciferol (vitamin D3) 5,000 unit capsule 5,000 unit PO DAILY RF: 0 ascorbic acid (vitamin C) 1,000 mg tablet 500 mg PO DAILY RF: 0 Follow up/Referrals: Josephine Fernandez MD [Physician] - (2 weeks for a postop visit) Kandis Estrella PA-C [Primary Care Provider] - Diet/Activity/Treatments Diet: Diet as Tolerated and Regular Cold/Heat Therapy: Use ice as needed for pain Other treatments: Weightbearing as tolerated with front wheel walker. Maintain anterior hip precautions. Use aspirin 81 mg twice daily to prevent blood clots x6 weeks Skin/Wound/Dressing Care Report to your healthcare provider any signs of infection, such as:: chills, fever, night sweats, unusual drainage and unusual redness Dressing: Okay to shower with incision covered. Please change the dressing if it becomes soiled or saturated (call the office). Visit Report/Discharge Packet Instructions: DI for Hip Replacement Stand Alone Forms: Surgery Discharge Discharge Data Primary Care Provider: Kandis Estrella Attending Provider: Josephine Fernandez
[2021-05-08 07:40] LABS: Hematocrit 31.5 % (36-46); Hemoglobin 10.6 g/dL (12.0-16.0)
[2021-05-08 07:50] VITALS: BP 106/58; PULSE 75; RESP 16; TEMP 36.2; O2SAT 94
[2021-05-08] MEDS: ASCORBIC ACID 500 MG TABLET PO (08:23)
[2021-05-08] MEDS: ASPIRIN EC 81 MG TABLET PO (08:23)
[2021-05-08] MEDS: MAGNESIUM OXIDE 400 MG TABLET PO (08:23)
[2021-05-08] MEDS: DOCUSATE 100 MG CAPSULE PO (08:23)
[2021-05-08] MEDS: CHOLECALCIFEROL (VITAMIN D3) 5,000 UNIT TABLET 5000 UNIT PO (08:23)
[2021-05-08] MEDS: ACETAMINOPHEN 325 MG TABLET 650 MG PO (08:24)
--- NOTE | 2021-05-08 09:20 | PT.IIE ---
Current Diagnoses Unilateral primary osteoarthritis, left hip (05/08/21) Surgery Performed Operation Date: 05/07/21 10:45 Actual Procedures p Total Hip Arthroplasty/Anterior Approach(Left) - Josephine Fernandez MD Medical History (Last Reviewed 05/08/21 @ 07:29 by Azra He PA-C) Cervical spondylosis with radiculopathy Degenerative joint disease (DJD) of hip Easy bruisability Facet arthropathy, lumbar History of Mohs micrographic surgery for skin cancer Hypothyroid Left hip pain Lumbosacral spondylosis Osteoarthritis Rotator cuff impingement syndrome of left shoulder Seasonal allergies Spondylolisthesis at L4-L5 level Physical Therapy Inpatient Evaluation/Re-Eval M1 PT/OT-IP Prior Functional Status Start: 05/08/21 12:35 Freq: NEEDED Status: Active Protocol: Document 05/08/21 09:20 AB (Rec: 05/08/21 12:55 AB [id number]) Medical Review Prior Functional Status Medical History Reviewed Yes Communication able to make needs known Mobility and Gait pt stated that she is independent with all mobilities and ambulation without AD Social History Household Members none Living Arrangements House Number of Floors (Floors) Two Floors Number of Stairs To Enter/Railing? elevator to get to bedroom level 1 step to enter Home Environment High Toilet,Walk in Shower, Built-In Shower Seat Home Equipment Front Wheel Walker,Hand Held Shower Additional Social History Comment stated that her BF will stay with her over the weekend and her son will stay with her to assist as long as needed M2 PT-IP Current Condition Start: 05/08/21 12:35 Freq: NEEDED Status: Active Protocol: Document 05/08/21 09:20 AB (Rec: 05/08/21 12:55 AB [id number]) Physical Therapy Current Condition Current Condition Evaluation Date 05/08/21 Treatment Diagnosis s/p L TRISTIN anterior approach; difficulty in walking Onset Date 05/07/21 Precautions Anterior Hip Precautions No Hip Extension,No Hip External Rotation Weight Bearing Status Weight Bearing Status Weight Bear as Tolerated Allowed Weight Bearing Amount (enter % LLE WBAT or #) (%) M3 PT-IP Subjective Start: 05/08/21 12:35 Freq: NEEDED Status: Active Protocol: Document 05/08/21 09:20 AB (Rec: 05/08/21 12:55 AB [id number]) Subjective Physical Therapy Visit Type Type Initial Evaluation Visit Start Time 09:20 Visit Stop Time 10:40 Total Visit Minutes 70 Number of SYSTEMS DEVELOPER Visits 0 Physical Therapy Visit Comments Patient Comments pt is agreeable to do PT; BF in room with pt Therapy Pain Assessment Pain When Pain Assessed At Rest Pain Present Pain Present Pain Reported Location Left Hip Intensity 3 Scale Used Numeric (0 - 10) Pain Management Techniques Apply Cold,Modification of Treatment,Re-positioning, Timing of Activity with Medications M4 PT-IP Mobility and Gait Start: 05/08/21 12:35 Freq: NEEDED Status: Active Protocol: Document 05/08/21 09:20 AB (Rec: 05/08/21 12:55 [email or web address]) PT-Bed Mobility Assessment Supine to Sit Supine to Sit Standby Assistance Sit to Supine Sit to Supine Standby Assistance PT-Transfer Assessment Sit to and From Stand Sit to and from Stand Standby Assistance,Contact Guard Assistance,1 Person Assistance,Use of Upper Extremities Equipment Transfer Assistive Device Gait Belt,Front Wheeled Walker Orthotic/Prosthetic Devices or Brace: No Transfers Transfer Destination Toilet Transfer Technique ambulated Transfer Ability Level of Assist Standby Assistance,Contact Guard Assistance,1 Person Assistance,Use of Upper Extremities Comments Mobility Comments educated pt and BF regarding anterior hip precautions. pt requiring cues to recall. pt completed supine to sit SBA and requested to use the toilet. sit to stand CGA and ambulated to the toilet using FWW CGA. cued for hip precautions. ambulated to the sink SBA to CGA and was able to stand by the sink SBA while completing handwashing. caregiver training conducted. educated BF on how to use safety belt and how to assist pt. BF was able to put safety belt on and assisted pt with ambulation in the hallway using FWW CGA. educated pt on up/down stairs. pt initially told PT that she has 2 steps without rails to enter the house. completed up/down steps with CAPTAIN OF GUARDS mod to max A. completed again with CAPTAIN OF GUARDS and SPC. PT initially assisting and then BF counterdemonstrated and was able to assist pt. BF then stated that they only have one step to enter the house. completed up/down platform step using FWW with BF assisting and PT providing cues. completed again without cues. pt ambulated back to her room CGA using FWW. sat on chair. call light and table placed within reach. Pt and BF have no other concerns. informed NAC that pt is waiting for d/c. Gait Assessment Gait Gait Assistance Required: Standby Assistance,Contact Guard Assist Distance (Feet) 125 Able to Maintain Weight Bearing Status Yes During Gait Assistive Devices Assistive Device Gait Belt,Front Wheeled Walker Orthotic/Prosthetic Devices or Brace: No Gait Deviations General Gait Pattern Decreased Stride Length, Decreased Feet Clearance Factors Limiting Gait Function Factors Limiting Gait Function Decreased Activity Tolerance, Decreased Strength,Pain,Poor Balance,Poor Safety Awareness Stair Climbing Assessment Evaluation Level of Assist On Stairs Contact Guard Assistance, Moderate Assistance,Maximal Assistance Devices Stair Climbing Assistive Devices None,Straight Cane,Front Wheel Walker Technique/Endurance Stair Climbing Direction Ascend and Descend Stair Climbing Technique Step to Step Number of Steps Climbed 1 Query Text: Stair Climbing Set # Repetitions (reps) 6 Comments Stair Climbing Comments pls refer to mobility section for details PT-Balance Assessment Sitting Balance and Reactions Static Sitting Balance Ability Good Dynamic Sitting Balance Ability Good Standing Balance and Reactions Static Standing Balance Ability Fair Dynamic Standing Balance Ability Fair Device Used FWW M5 PT-IP Objective Assessments Start: 05/08/21 12:35 Freq: NEEDED Status: Active Protocol: Document 05/08/21 09:20 AB (Rec: 05/08/21 12:55 AB [id number]) Orientation Orientation/Cognition Level of Alertness Alert Orientation Name,Place,Situation Language Function Ability No Deficits Noted Safety Awareness Decreased Safety Awareness Memory Description Short Term Impaired Gross Range of Motion Lower Extremity ROM Assessment Within Functional Limits Strength Lower Extremity Strength Assessment Left Impaired Hip 3+/5 Knee 4-/5 Sensation Assessment Sensation Gross Sensation WNL Muscle Tone Muscle Tone WNL Yes M6 PT-IP Treatment Start: 05/08/21 12:35 Freq: NEEDED Status: Active Protocol: Document 05/08/21 09:20 AB (Rec: 05/08/21 12:55 AB [id number]) Physical Therapy Treatment Education Education Provided Precautions,Weight Bearing Status,Post-Op Packet,Safety M7 PT-IP Assessment and Plan Start: 05/08/21 12:35 Freq: NEEDED Status: Active Protocol: Document 05/08/21 09:20 AB (Rec: 05/08/21 12:55 AB [email or web address]) PT Summary Assessment and Plan Potential Rehabilitation Potential Good Status of Condition at Evaluation Stable Summary Impairments Pain,ROM,Strength,Balance, Coordination,Sensation,Tone, Cognition,Bed Mobility, Transfers,Gait,Activity Tolerance Assessment Summary pt requiring SBA to CGA with mobility using fWW. caregiver training conducted and BF was able to assist pt safely. pt plans to go home with assist and is set up for outpt PT. pt may go home when medically stable. Goals Bed Mobility Goal Independent Transfer Goal Independent,Front Wheeled Walker Gait Goal Independent,Front Wheel Walker Gait Distance 200 Other Goals up/down 1 step using FWW mod I Days to Meet Goals 5 Frequency of Treatment Frequency Of Treatment Twice a Day Treatment Plan Physical Therapy Treatment Plan Bed Mobility Training,Transfer Training,Gait Training, Therapeutic Exercise,Balance Retraining,Post Op Education, Discharge Planning,Hot or Cold Pack,Neuromuscular Re-ed, Coordination Retraining,Manual Therapy Precautions Anterior Hip Precautions No Hip Extension,No Hip External Rotation Recommendations To Nursing Amount of Assist Needed 1 Person Assist Discharge Recommendations PT Discharge Recommendations Home with Assistance, Outpatient PT Transportation Needs at Discharge Private Vehicle
--- NOTE | 2021-05-08 11:53 | PC.NURSE ---
Day shift: Paperwork signed and all questions answered. Pt has MD scripts and all personal belongings. Pt's S.O. in room for teachings. Aquacel remains CDI as well as VS WNL. Pt stated I'm happy to be going today. Pain well controlled per MAR as well. Pt's SO is driving her home. Taken to that car by CASSANDRA Masters in WC. Pt tolerating ambulation well.
--- NOTE | 2021-05-08 12:12 | PC.NURSE ---
Day shift: Went home at approx 1210.
--- NOTE | 2021-05-08 12:56 | CM.DANOTE ---
Discharge Planning/Care Management DCP: assessment: case received, discussed in Team Rounds. DC order noted pending clearance by PT A check in now shows that PT cleared pt and she did go home in company of family at 1200. She will have care as she recovers from her significant other and her son. Advanced directive, confirm from FAMILY Start: 05/07/21 16:12 Freq: Q24H Status: Discharge Protocol: Document 05/07/21 16:12 GMP (Rec: 05/07/21 19:15 GMP [id number]) Advance Directive, confirm on record Time 16:00 Person contacted pt Copy received No Pre-Anesthesia Assessment Start: 04/30/21 09:51 Freq: Status: Discharge Protocol: Document 04/30/21 09:51 CAB (Rec: 04/30/21 10:44 CAB [id number]) Pre-Anesthesia Assessment Preferred Name Juliette or Maryjane Patient Information Reviewed Via Phone Assessment Assessment Completed With Patient Diagnostic Results BMP/CMP,CBC,EKG,Urinalysis Comment Labs/EKG @ 04/15/21 COVID screen @ 05/06/21 Primary Care Provider Kandis Estrella Seen Specialist in Last 12 Months Yes Specialist Seen Orthopedist,Other Comment Pain specialist Primary Language Indian Materials Assistant Required No Height 152.4 cm Weight 49.895 kg Body Mass Index (BMI) 21.4 Hearing Ability Normal Visual Assist Contacts,Glasses Dentition Type Teeth, Natural Present Barriers to Learning None Hx Anesthesia Reactions No Hx Family Anesthesia Reaction No Hx Malignant Hyperthermia No Hx Blood Transfusions No Anesthesia Review Requested No alcohol intake former Alcohol Intake Frequency Other: Quit 8 years ago Smoking Status Former smoker how long ago did patient quit smoking Quit 45 years ago Substance Use Type does not use Pain Present Pain Reported Musculoskeletal Symptoms Abnormal Gait,Back Pain, Difficulty Walking,Joint Pain, Neck Pain History of Falling (Recent or History of No ) Patient is completely paralyzed or No completely immobile Mental Status Oriented to own ability Is patient on oxygen? No Does patient have SAMPSON/SOB No Hx Sleep Apnea No Currently Taking a Beta Rebeka No Can You Climb a Flight of Stairs Without Yes SOB Hx Chest Pain No Hx SOB No Hx Syncope or Dizziness No Anti-Coagulant Therapy No Has a Plant Anatomist No Cardiac Testing No Hx Pacemaker/ICD No Pacemaker Rep Required? No Diet Type At Home Regular dysphagia No Gastrointestinal Symptoms Constipation Urinary Catheter Present No Hx Urinary Self Catheterization No Diabetes No HgbA1C 5.5 Date 04/15/21 Patient No Lactating No Hx Drug Resistant Organism No Presence of External or Internal Medical Yes: Face/chin Devices Have you had any close contact with No someone diagnosed with COVID-19? Marital Status / Lives With none Prior Living Arrangements House Number of Floors (Floors) 3 or More Floors Support System Child/Children,Significant Other Does the Patient Have Assistance After Yes Surgery Patient Discharge Plan Description Return Home Comment Pt advised overnight length of stay per surgeon Feels Safe in Current Environment Yes Been Physically Hurt or Threatened By a No Person in Current Environment Do you have thoughts of harming yourself None or others? Are you currently considering suicide? No Do you have a plan to hurt yourself or No Plan others? Do You Have Any Spiritual Beliefs That No May Affect Your HC Choices? Do You Have Any Cultural Practices That No May Affect Your HC Choices? Comment [id number] Who Can We Speak to About Patient's Care Family, friends Identifying Code for Release of Patient Declines to issue Information Health Care Proxy/Next of Kin Reji (son) Health Care Proxy Emergency Contact Name Dangelo (S.O.) Emergency Contact Advance Directives? Yes Advance Directives on File No Requested Patient Bring Advanced Yes Directives DOS Power of Spooling Machine Operator Yes Power of Spooling Machine Operator Name Reji (son) Power of Spooling Machine Operator PAC Instructions Durable medical equipment, Medications to take/avoid, Nasal antibiotic,No ETOH/ petroleum product on skin DOS, NPO,Post-op transportation,Pre -surgical wash,Sturdy shoes/ comfortable clothes,Do not bring valuables and remove jewelry
== END 2021-05-08 12:13 | disposition home or self-care (01) ==
LOC: OR 11:32 → AC 11:32
PROVIDERS: Admitting Provider Orthopaedic Surgery; Family Provider Physician Assistant Medical; PCP Physician Assistant Medical; Referring Provider Orthopaedic Surgery; Visit Provider Orthopaedic Surgery
PROC: (CPT 27130; principal; 2021-05-07 10:45)
DX: M16.12 Unilateral primary osteoarthritis, left hip (principal); E03.9 Hypothyroidism, unspecified
CPT/HCPCS: 27130; 36415; 73502; 73503; 76000; 85014; 85018; 97161; 97530; C1776; G0378; J0171; J0690; J2250; J3010

== ENCOUNTER → 2021-06-17 14:01 | Outpatient (CLI) | payer OTHER, SELFPAY ==
[2021-05-07 15:59] VITALS: BMI 21.4
[2021-06-17 15:06] LABS: Add Manual Diff / Slide Review NO; Basophils Absolute Auto 0 /uL (0-100); Basophils Percent Auto 0.2 % (0-2); Eosinophils Absolute Auto 100 /uL (0-450); Eosinophils Percent Auto 1.3 % (2-4); Hematocrit 37.2 % (36-46); Hemoglobin 12.1 g/dL (12.0-16.0); Lymphocytes Absolute Auto 1700 /uL (1100-4500); Lymphocytes Percent Auto 29.7 % (25-40); Mean Corpuscular HGB Conc 32.5 % (30-36); Mean Corpuscular Hemoglobin 31.9 PG (26-34); Mean Corpuscular Volume 98.4 fL (80-100); Monocytes Absolute Auto 500 /uL (0-900); Monocytes Percent Auto 8.1 % (3-14); Neutrophils Absolute Auto 3400 /uL (1500-7000); Neutrophils Percent Auto 60.7 % (50-75); Platelet Count 225 X10^3/uL (150-400); Red Blood Cell Count 3.78 X10^6/uL (4.0-5.2); White Blood Cell Count 5.6 X10^3/uL (4.5-11.0)
[2021-06-17 15:36] LABS: BUN Creatinine Ratio 19.7 (6-22); Blood Urea Nitrogen 13 mg/dL (7-17); Calcium 9.8 mg/dL (8.4-10.2); Carbon Dioxide 32 mmol/L (22-32); Chloride 103 mmol/L (98-107); Estimated Glomerular Filt Rate > 60.0 mL/min (>60); Glucose 80 mg/dL (80-110); HEMOLYSIS < 15 (0-50); Potassium 4.3 mmol/L (3.4-5.1); Sodium 143 mmol/L (137-145)
== END ==
PROVIDERS: Family Provider Physician Assistant Medical; PCP Physician Assistant Medical; Referring Provider Orthopaedic Surgery; Visit Provider Orthopaedic Surgery
DX: Z01.812 Encounter for preprocedural laboratory examination (principal)
CPT/HCPCS: 36415; 80048; 85025

== ENCOUNTER → 2021-07-13 10:11 | Outpatient (CLI) | payer OTHER, SELFPAY ==
[2021-05-07 15:59] VITALS: BMI 21.4
[2021-07-13 14:34] LABS: COVID19 -Nasal RAPID Negative (Negative)
== END ==
PROVIDERS: Family Provider Physician Assistant Medical; PCP Physician Assistant Medical; Visit Provider Nurse Practitioner Family
DX: Z20.822 Contact with and (suspected) exposure to COVID-19 (principal)
CPT/HCPCS: 87635; C9803

== ENCOUNTER 2021-07-15 09:07 | Observation (INO) | payer OTHER, SELFPAY ==
[2021-05-07 15:59] VITALS: BMI 21.4
[2021-07-09 13:51] VITALS: BMI 21.4
[2021-07-14] VITALS (12 sets, daily range): BP systolic 93–132; BP diastolic 53–72; PULSE 62–86; RESP 13–26; TEMP 36.3–36.9; O2SAT 92–100; BMI 21.4
--- NOTE | 2021-07-14 06:00 | DI.RAD.S_ITS ---
PROCEDURE: XR HIP W PEL IF DONE RT 2V INDICATIONS: postop prosthesis placement TECHNIQUE: AP pelvis and lateral view of the right hip acquired. [facility], 05/07/2021, 13:28. FINDINGS: Bones: Patient is status post right hip arthroplasty, with hardware components in expected positions. The hip joint appears congruent. The visualized bony structures appear intact. Redemonstrated left hip arthroplasty. Soft tissues: Overlying postoperative changes are noted. No suspicious soft tissue densities. IMPRESSION: No significant abnormality. Dictated by: Lan Kimble M.D. on 07/14/2021 at 16:21 Approved by: Lan Kimble M.D. on 07/14/2021 at 16:22
--- NOTE | 2021-07-14 07:14 | DI.RAD.S_ITS ---
PROCEDURE: XR HIP W PEL IF DONE RT 2V INDICATIONS: INTEROPERATIVE ANTERIOR RIGHT HIP TECHNIQUE: AP pelvis with lateral view(s) of the right hip(s). COMPARISON: [facility] , XR HIP W PEL IF DONE LT 2V, 05/07/2021, 13:28. FINDINGS: Expected intraoperative alignment of right hip arthroplasty Dictated by: Josue Mills M.D. on 07/15/2021 at 8:58 Approved by: Josue Mills M.D. on 07/15/2021 at 8:58
[2021-07-14] MEDS: CELECOXIB 200 MG CAPSULE PO (12:34)
[2021-07-14] MEDS: LACTATED RINGERS 1,000 ML 42 ML IV (12:35)
[2021-07-14] MEDS: ACETAMINOPHEN 325 MG TABLET 975 MG PO (13:07)
[2021-07-14] MEDS: PREGABALIN 75 MG CAPSULE PO (13:07)
[2021-07-14] MEDS: VANCOMYCIN 1,000 MG/200 ML PIGGYBACK 200 MG IV (13:07)
--- NOTE | 2021-07-14 13:19 | PM.PREOP ---
Pre-operative Note COVID-19 COVID-19 status: Negative Interval Note History & Physical reviewed/Exam performed by Physician: Yes Changes to H&P: No
--- NOTE | 2021-07-14 13:22 | PM.OP.1 ---
Operative Date/Time/Diagnoses Date of procedure: 07/14/21 Time of procedure: 14:00 Pre-op diagnosis: Severe right hip osteoarthritis Post-op diagnosis: same Procedure & Clinicians Procedure: Right total hip arthroplasty anterior approach Same procedure as scheduled: Yes Indications: The patient has had progressively worsening right hip pain with radiographic changes consistent with arthritis. Non-operative management has failed and the patient has requested total hip replacement. The risks, benefits and alternatives to surgery were discussed with the patient prior to proceeding. Risks discussed included, but were not limited to, failure to relieve pain, leg length discrepancy, dislocation, stiffness, infection, nerve damage, deep venous thrombosis, pulmonary embolism, stroke, coma, heart attack, permanent paralysis and , as well as the potential need for eventual revision of the prosthetic. Surgeon: Josephine Fernandez Solicitor Patent: Ray Seaman Anesthesia Type: General and Spinal Operative Notes Findings: Severe right hip osteoarthritis, adequate stability Closure Type: primary Specimen(s): none sent Prosthetic devices, grafts, tissues, transplants, or devices: Fernandez and nephew anthology standard offset size 8, R3 52 mm cup,-3 by 36 mm Oxinium head, one 20mm screw Estimated Blood Loss (mL): 250 Blood products transfused: none Procedure in detail: The patient was brought to the operating room. Patient was carefully positioned in the supine position. Time-out was performed and antibiotics were given. Anesthesia was induced. She was positioned in the on the table in order to allow hyperextension of the hip. The right lower extremity was prepped and draped in a standard sterile fashion. An anterior right hip incision was made 1 fingerbreadth lateral to the anterior superior iliac spine and extended distally towards the greater trochanter. Dissection was carried out through skin and subcutaneous tissues. Superficial hemostasis was achieved. The fascia over the tensor fascia andrew was defined and incised with a knife. Two Allis clamps were used to grasp the fascia. Tensor fascia andrew was retracted laterally. A gelpi retractor was placed. Dissection was carried out down along the neck. The circumflex vessels were carefully identified and cauterized with the Aqua Mantis. There was good visualization of the femoral neck. A Cobra was placed superior to the neck and the gluteus fibers were carefully stripped from that superior aspect of the capsule. A 2nd retractor was placed along the inferior aspect of the neck. The rectus insertion along the capsule was partially released. A 3rd retractor that was then gently placed over the rim of the acetabulum under the rectus. Capsule was carefully incised and released from the intertrochanteric line circumferentially superior to the mid sagittal line and inferiorly to the mid sagittal line until the lesser trochanter was palpable. A tag stitch was placed both in the superior and inferior limb of the capsular insertion. Along the acetabulum capsule was also released up to the mid sagittal 12:00 position. A portion of the labrum was resected. A saw was used to perform an osteotomy at the level of the intertrochanteric line and the junction of the superior femoral neck leaving approximately 1 finger breath of residual inferior neck above the lesser trochanter. A 2nd cut was made along the femoral neck at the base of the head and a napkin ring of neck was removed. Corkscrew was placed in the femoral head and the head was removed without difficulty. Retractors were then repositioned around the acetabulum. Residual labrum was resected and additional osteophytes were removed. A reamer that was 4 mm below the templated size was placed by hand in the acetabulum and it was reamed to centralize the acetabulum. It was then reamed up to 2 under the templated size and fluoroscopy was brought in to confirm the position of the reaming and depth of reaming. I reamed 1 under the anticipated size. A trial cup was placed and noted that it was appropriately sized and fluoroscopy confirmed position and depth. The component was open and inserted without difficulty fluoroscopic imaging was used to confirm that the cup had been adequately seated and was well positioned. It was further stabilized with a single screw. Neutral poly liner was placed. The cup was tested and noted to be stable. Attention was then directed to the femur. The femur was gently hyperextended additional capsular release was performed as needed in order to allow adequate visualization of the proximal femur with elevation of the femur. Patient was placed in a hyperextended slightly adducted position with maximum external rotation. Box osteotome was used to check for any residual neck as well as sclerotic bone along the trochanter. [place] pepper was placed in the femur. Additional broaching was performed. Canal finder was used to determine the alignment of the canal and position. Size 1 broach was placed. The canal was then appropriately broached up to the templated size as long as there was adequate stability of the broach and serial advancement of the broach without excessive impingement. Specific attention was directed at avoiding varus attempting to direct the distal aspect of the broach more anteriorly and avoiding excessive anteversion. Trial reduction showed acceptable range of motion, good stability, no posterior impingement, sikh of leg length and appropriate lateral shuck. I also hyperflexed the hip and checked that there was no impingement anteriorly and there was good stability with flexion, adduction and internal rotation. Marcaine and Exparel were injected. The stem was placed without difficulty. Repeat trial reduction and x-ray showed acceptable overall position, length, and no evidence of the femoral fracture. Final head was placed. Wound was meticulously irrigated with normal saline. The hip was reduced and additional Exparel and Marcaine were injected. The capsule was closed with interrupted nonabsorbable sutures. The fascia of the tensor was closed with interrupted and running Vicryl. No drain was placed. Any tensor fascia andrew muscle that appeared to be contused or injured which was a minimal amount was carefully resected. Capsule around the tensor was injected with Exparel and Marcaine. The skin was closed with barbed stitches for the subcutaneous tissue and skin. We also used surgical glue. The wound was dressed sterilely. Brief Betadine soak was also used and was meticulously irrigated with normal saline. Patient was transferred to recovery room in satisfactory condition. Complications: none Post-operative Condition: stable Disposition: Acute Care Plan for aftercare: The patient will be maintained on a standard total hip replacement protocol with weight bearing as tolerated and anterior hip precautions. The patient will receive Aspirin and sequential compression devices for DVT prophylaxis. The patient will be discharged home when safe for the home environment.
[2021-07-14] MEDS: CEFAZOLIN 1 GM VIAL 2 GM IV ×2 (13:40→21:26)
[2021-07-14] MEDS: TRANEXAMIC ACID 1,000 MG VIAL 1000 MG INJ ×2 (13:50→15:28)
--- NOTE | 2021-07-14 13:57 | SUR.OPER ---
Supine on padded [place] table with bilateral legs secured in padded positioning boots and suspended in positioning spars, operative leg in traction per surgeon. Head on one pillow. Arm on non-operative side secured on padded armboard <90 degrees abduction. Arm on operative side padded and resting across chest then secured with tape over sheet. Padded perineal post in place per surgeon.
[2021-07-14] MEDS: BUPIVACAINE LIPOSOME 266 MG/20 ML VIAL INJ (14:03)
[2021-07-14] MEDS: BUPIVACAINE 0.25% (PF) 60 ML, EPINEPHrine 0.3 MG INJ (14:04)
[2021-07-14] MEDS: OXYCODONE IR 5 MG TABLET PO (16:20)
[2021-07-14] MEDS: hydrOXYzine 50 MG/ML INJ 25 MG IM (16:20)
--- NOTE | 2021-07-14 16:37 | SUR.PHASEI ---
When out of surgery was shivering. Covered with warm blankets. Then started complaining of pain. Ocycodone given and hydroxyzine. Still shivering. Delfino hugger on which helped alot. No IV pain meds given
[2021-07-14] MEDS: LACTATED RINGERS 1,000 ML 125 ML IV (17:00)
[2021-07-14] MEDS: IBUPROFEN 400 MG TABLET PO ×2 (17:58→21:26)
--- NOTE | 2021-07-14 19:36 | PC.NURSE ---
1700 Received from PACU, VSS. Alert and oriented, sleepy, states pain has improved to a 2 or 3 and is able to sleep now. Oriented to room and call light. Bed alarm activated for safety. Aquacel dressing to right hip CDI.
[2021-07-14] MEDS: ASPIRIN EC 81 MG TABLET PO (21:26)
[2021-07-14] MEDS: DOCUSATE 100 MG CAPSULE PO (21:26)
[2021-07-14] MEDS: ACETAMINOPHEN 325 MG TABLET 650 MG PO (21:26)
--- NOTE | 2021-07-14 22:28 | PC.NURSE ---
Addendum entered by Kayla Canseco R.N. 07/15/21 04:53: Has been sleeping most of shift. Up to bathroom now to urinate. States pain is 5/10 but again declines oxycodone but did take her scheduled Ibuprofen. Addendum entered by Kayla Canseco R.N. 07/15/21 00:29: States pain is currently 4/10 but declines oxycodone preferring to take only Ibuprofen at this time. Original Note: Patient is alert and oriented. Breath sounds CTA with RA sat of 96%. HRR. BP low at 93/57 but patient is asymptomatic. Denied nausea. BT present but has not passed flatus as yet. Voided on previous shift and denies any dysuria. Is able to turn self in bed. Reported to have been up to bathroom with walker and 1 assist but has not yet had PT. Aquacel dressing intact to right anterior hip; small spot of dark drainage noted. CMS is intact. Wearing bilateral calf SCD's. States pain only 2/10 at time of assessment and is currently sleeping. Reports having fallen in April so fall risk score is high and bed alarm is activated.
[2021-07-15 00:18] VITALS: BP 107/63; PULSE 93; RESP 16; TEMP 36.2; O2SAT 95
[2021-07-15] MEDS: IBUPROFEN 400 MG TABLET PO ×3 (00:28→08:25)
[2021-07-15] MEDS: LACTATED RINGERS 1,000 ML 125 ML IV (01:13)
[2021-07-15 04:56] VITALS: BP 118/47; PULSE 83; RESP 17; TEMP 36.4; O2SAT 99
[2021-07-15] MEDS: LEVOTHYROXINE 50 MCG TABLET PO (06:05)
[2021-07-15] MEDS: CEFAZOLIN 1 GM VIAL 2 GM IV (06:05)
[2021-07-15] MEDS: OXYCODONE IR 5 MG TABLET PO ×2 (06:13→11:15)
[2021-07-15 06:17] LABS: Hematocrit 32.1 % (36-46); Hemoglobin 10.9 g/dL (12.0-16.0)
--- NOTE | 2021-07-15 08:07 | PM.DS.1 ---
History of Present Illness History of Present Illness Date Patient Seen: 07/15/21 Time Patient Seen: 08:07 Chief complaint: Right hip pain s/p right TRISTIN Narrative: The patient is complaining of mild right hip pain this morning. She denies any new numbness or tingling. No fevers, chills, night sweats. No chest pain or shortness of breath. The patient is feeling well and would like to be discharged home today when she is cleared by PT. Discharge Providers Provider Discharge Date: 07/15/21 Primary care physician: Kandis Estrella PA-C Consults: 07/14/21 06:00 Consult to Anesthesiology Routine Comment: Consulting Provider: Anesthesiologist Reason for consultation: Regional block for post operative pain control 07/14/21 16:57 Consult to Discharge Planning Routine Comment: Consult to Physical Therapy Evaluate & Treat Comment: Physician Instructions: post op TRISTIN protocol Consult to Respiratory Therapy Evaluate & Treat Comment: Physician Instructions: Evaluate and treat Discharge provider: Azra He PA-C Summary Hospital Course Discharge Diagnosis: Severe right hip osteoarthritis Hospital Course: Date of procedure: 07/14/21 Time of procedure: 14:00 Procedure & Clinicians Procedure: Right total hip arthroplasty anterior approach Same procedure as scheduled: Yes Indications: The patient has had progressively worsening right hip pain with radiographic changes consistent with arthritis. Non-operative management has failed and the patient has requested total hip replacement. The risks, benefits and alternatives to surgery were discussed with the patient prior to proceeding. Risks discussed included, but were not limited to, failure to relieve pain, leg length discrepancy, dislocation, stiffness, infection, nerve damage, deep venous thrombosis, pulmonary embolism, stroke, coma, heart attack, permanent paralysis and , as well as the potential need for eventual revision of the prosthetic. Surgeon: Josephine Fernandez Dry Cans Back Tender: Ray Seaman Anesthesia Type: General and Spinal Operative Notes Findings: Severe right hip osteoarthritis, adequate stability Closure Type: primary Specimen(s): none sent Prosthetic devices, grafts, tissues, transplants, or devices: Fernandez and nephew anthology standard offset size 8, R3 52 mm cup,-3 by 36 mm Oxinium head, one 20mm screw Estimated Blood Loss (mL): 250 Blood products transfused: none Status at Discharge Cognitive/behavioral status at discharge: oriented Functional status at discharge: uses cane/walker Overall status at discharge: patient is progressing back to baseline Exam Vital Signs (past 8 hours): - 07/15/21 00:18 07/15/21 04:56 Temperature 97.1 F L 97.5 F L Pulse Rate 93 H 83 Respiratory Rate 16 17 Blood Pressure 107/63 118/47 L Pulse Oximetry 95 99 Oxygen Delivery Method Room Air Oxygen Flow Rate 0 Narrative Exam Narrative: Pleasant 71-year-old female, resting comfortably in bed, no acute distress. Dressing is clean, dry, intact. Bilateral lower extremity motor functions are grossly intact. Sensation is grossly intact to light touch in bilateral lower extremities. Bilateral calves are soft, nontender to palpation. 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 Maintain anterior hip precautions x6 weeks. Weightbearing as tolerated with front wheel walker -continue with current pain regimen and DVT prophylaxis -DC home today when cleared by PT Discharge Plan Discharge Plan Patient Disposition: Home Discharge orders & Medications Discharge Orders: Discharge (Order); Ordered 07/15/21 Ordered By: Azra He Prescriptions: Continued turmeric root extract 500 mg Capsule 500 mg PO DAILY RF: 0 pseudoephedrine HCl 30 mg Capsule 30 mg PO QD-BID PRN (Reason: seasonal allergies) RF: 0 vitamin B complex Capsule 1 cap PO DAILY RF: 0 levothyroxine 50 mcg Capsule 50 mcg PO DAILY RF: 0 krill oil 500 mg Capsule 500 mg PO DAILY RF: 0 magnesium oxide 400 mg magnesium Tablet 400 mg PO DAILY RF: 0 acetaminophen 500 mg capsule 500 mg PO Q4-5H MDD Max 6 tabs per day Qty: 90 RF: 0 aspirin 81 mg Tablet,Delayed Release (Dr/Ec) 81 mg PO BID Qty: 84 RF: 0 ibuprofen 400 mg Tablet See Rx Instructions .ROUTE .COMPLEX Qty: 90 RF: 0 oxycodone 5 mg Tablet 5 mg PO Q4-5H PRN (Reason: Moderate to severe pain) Qty: 20 RF: 0 cholecalciferol (vitamin D3) 5,000 unit capsule 5,000 unit PO DAILY RF: 0 ascorbic acid (vitamin C) 1,000 mg tablet 500 mg PO DAILY RF: 0 Discontinued ibuprofen 200 mg Tablet 200 mg PO Q4H PRN (Reason: Pain) RF: 0 Follow up/Referrals: Josephine Fernandez MD [Physician] - (10-14 days for postoperative visit) Kandis Estrella PA-C [Primary Care Provider] - Diet/Activity/Treatments Diet: Diet as Tolerated and Regular Other treatments: Medications: -Aspirin 81mg twice daily x6 weeks to prevent blood clots. -OTC Tylenol 500 mg 1 tablet every 4 hours as needed for pain/fever. Max 6 tablets per day. -Ibuprofen 400 mg 1 tablet every 4 hours as needed for pain/inflammation. Max 2,400 mg per day. -Oxycodone 5 mg take 1-2 tablets every 4 hours as needed for moderate-severe pain (narcotic pain medication). -As needed medications: -Ducolax and /or MiraLax as needed for constipation from narcotic pain medications. -Pepcid AC as needed for stomach upset (usually from aspirin or ibuprofen). Dressing/Wound care: -Keep Aquacell dressing in place until postoperative follow-up office visit. -Okay to shower. Keep wound out of direct water stream. No soaking or submerging until all the scabs fall off (approximately 6 weeks). -Please call the office if dressing becomes wet, soiled, or saturated. Activities: -Maintain anterior hip precautions x6 weeks. -Weight-bearing as tolerated. Use front wheeled walker, and progress to cane when safe. -Continue with home exercises as directed by your physical therapist. -Elevate ?toes above the nose if you have significant swelling in your lower leg. (A wedge pillow is easiest.) -Ice your incision as needed for pain/inflammation/swelling. Protect your skin with a folded pillowcase. Follow-up: -Follow-up with your surgeon or PA in the office in 10-14 days after surgery. -Follow-up with your surgeon 6 weeks postoperatively. Call the office if you have chest pain, shortness of breath, significant swelling that will not resolve with elevating, fever over 101?, significantly worsening pain. [facility]: [phone] Skin/Wound/Dressing Care Report to your healthcare provider any signs of infection, such as:: chills, fever, night sweats, unusual drainage and unusual redness Visit Report/Discharge Packet Instructions: DI for Hip Replacement Stand Alone Forms: Surgery Discharge Discharge Data Primary Care Provider: Kandis Estrella Attending Provider: Josephine Fernandez
[2021-07-15] MEDS: DOCUSATE 100 MG CAPSULE PO (08:26)
[2021-07-15] MEDS: ASPIRIN EC 81 MG TABLET PO (08:26)
[2021-07-15] MEDS: INFLUENZA HD VACCINE 0.7 ML SYRINGE IM (08:26)
[2021-07-15] MEDS: CHOLECALCIFEROL (VITAMIN D3) 5,000 UNIT TABLET 5000 UNIT PO (08:26)
[2021-07-15] MEDS: MAGNESIUM OXIDE 400 MG TABLET PO (08:26)
[2021-07-15] MEDS: ACETAMINOPHEN 325 MG TABLET 650 MG PO (08:26)
[2021-07-15] MEDS: ASCORBIC ACID 500 MG TABLET PO (08:26)
--- NOTE | 2021-07-15 08:45 | PT.IIE ---
Current Diagnoses Unilateral primary osteoarthritis, right hip (07/15/21) Surgery Performed Operation Date: 07/14/21 13:45 Actual Procedures p Total Hip Arthroplasty/Anterior Approach(Right) - Josephine Fernandez MD Medical History (Last Reviewed 07/15/21 @ 08:09 by Azra He PA-C) Cervical spondylosis with radiculopathy Degenerative joint disease (DJD) of hip Easy bruisability Facet arthropathy, lumbar History of Mohs micrographic surgery for skin cancer Hypothyroid Left hip pain Lumbosacral spondylosis Osteoarthritis Rotator cuff impingement syndrome of left shoulder Seasonal allergies Spondylolisthesis at L4-L5 level Physical Therapy Inpatient Evaluation/Re-Eval M1 PT/OT-IP Prior Functional Status Start: 07/15/21 11:34 Freq: NEEDED Status: Discharge Protocol: Document 07/15/21 08:45 AB (Rec: 07/15/21 11:55 AB [id number]) Medical Review Prior Functional Status Medical History Reviewed Yes Communication able to make needs known Mobility and Gait pt stated that she is independent with all mobilities and ambulation without AD Social History Household Members none Living Arrangements House Number of Floors (Floors) Two Floors Number of Stairs To Enter/Railing? elevator to get to 2nd level bedroom 1 step to enter the house Home Environment High Toilet,Walk in Shower, Built-In Shower Seat Home Equipment Front Wheel Walker,Hand Held Shower,Grab Bars In Shower Additional Social History Comment pt stated that her BF Dangelo will stay with her for a few days and her son will be coming this tuesday to take over her care assistance M2 PT-IP Current Condition Start: 07/15/21 11:34 Freq: NEEDED Status: Discharge Protocol: Document 07/15/21 08:45 AB (Rec: 07/15/21 11:55 AB [email or web address]) Physical Therapy Current Condition Current Condition Evaluation Date 07/15/21 Treatment Diagnosis s/p R TRISTIN anterior approach; difficulty in walking Onset Date 07/14/21 M3 PT-IP Subjective Start: 07/15/21 11:34 Freq: NEEDED Status: Discharge Protocol: Document 07/15/21 08:45 AB (Rec: 07/15/21 11:55 AB [email or web address]) Subjective Physical Therapy Visit Type Type Initial Evaluation Visit Start Time 08:45 Visit Stop Time 09:30 Total Visit Minutes 45 Number of LOGISTICS DIRECTOR Visits 0 Physical Therapy Visit Comments Patient Comments agreeable to do PT Therapy Pain Assessment Pain When Pain Assessed At Rest Pain Present Pain Present Pain Reported Location Right Hip Intensity 2 Scale Used Numeric (0 - 10) Pain Management Techniques Apply Cold,Distraction, Modification of Treatment,Re- positioning,Timing of Activity with Medications M4 PT-IP Mobility and Gait Start: 07/15/21 11:34 Freq: NEEDED Status: Discharge Protocol: Document 07/15/21 08:45 AB (Rec: 07/15/21 11:55 AB [email or web address]) PT-Bed Mobility Assessment Supine to Sit Supine to Sit Standby Assistance Sit to Supine Sit to Supine Standby Assistance PT-Transfer Assessment Sit to and From Stand Sit to and from Stand Standby Assistance Equipment Transfer Assistive Device Gait Belt,Front Wheeled Walker Orthotic/Prosthetic Devices or Brace: No Transfers Transfer Destination Chair Transfer Technique ambulated Transfer Ability Level of Assist Standby Assistance,1 Person Assistance,Use of Upper Extremities Comments Mobility Comments educated pt on anterior hip precautions. initially requiring cues to recall but able to remember afterwards. completed supine to sit SBA. sat on EOB SBA. completed sit to stand SBA. pt ambulated in room using FWW SBA ~ 20ft and cues to maintain hip precautions. pt agreed to walk in the hallway and completed ~ 150 ft using FWW SBA. completed up/down platform step using FWW CGA x 4 reps. pt ambulated back to her room using FWW SBA 150 ft. pt requested to use the toilet and ambulated to the toilet using FWW SBA. completed toileting SBA and ambulated towards the sink using FWW SBA . pt was able to maintain standing balance FWW for support SBA while completing ADLs (handwashing, brushing her teeth). pt ambulated to the chair using fWW SBA. positioned on chair. ice pack provided. call light and table placed within reach. Gait Assessment Gait Gait Assistance Required: Standby Assistance Distance (Feet) 150 Able to Maintain Weight Bearing Status Yes During Gait Assistive Devices Assistive Device Gait Belt,Front Wheeled Walker Orthotic/Prosthetic Devices or Brace: No Gait Deviations General Gait Pattern Antalgic Factors Limiting Gait Function Factors Limiting Gait Function Decreased Activity Tolerance, Decreased Strength,Limited Range of Motion,Pain,Poor Balance,Poor Safety Awareness Comments Gait Comments pls refer to mobility section for details Stair Climbing Assessment Evaluation Level of Assist On Stairs Contact Guard Assistance Devices Stair Climbing Assistive Devices Front Wheel Walker Technique/Endurance Stair Climbing Direction Ascend and Descend Stair Climbing Technique Step Over Step Number of Steps Climbed 1 Query Text: Stair Climbing Set # Repetitions (reps) 4 Comments Stair Climbing Comments initially requiring cues but after 2nd repetion, was able to complete without cues PT-Balance Assessment Sitting Balance and Reactions Static Sitting Balance Ability Normal Dynamic Sitting Balance Ability Good Standing Balance and Reactions Static Standing Balance Ability Fair Dynamic Standing Balance Ability Fair Device Used FWW M5 PT-IP Objective Assessments Start: 07/15/21 11:34 Freq: NEEDED Status: Discharge Protocol: Document 07/15/21 08:45 AB (Rec: 07/15/21 11:55 AB [email or web address]) Orientation Orientation/Cognition Level of Alertness Alert Orientation Name,Place,Situation Language Function Ability No Deficits Noted Safety Awareness Decreased Safety Awareness Memory Description Short Term Impaired Gross Range of Motion Lower Extremity ROM Assessment Within Functional Limits Strength Lower Extremity Strength Assessment Right Impaired Hip 4-/5 Knee 4/5 Coordination Assessment Gross Coordination Gross Coordination WNL Muscle Tone Muscle Tone WNL Yes M6 PT-IP Treatment Start: 07/15/21 11:34 Freq: NEEDED Status: Discharge Protocol: Document 07/15/21 08:45 AB (Rec: 07/15/21 11:55 AB [email or web address]) Physical Therapy Treatment Education Education Provided Precautions,Weight Bearing Status,Post-Op Packet,Safety M7 PT-IP Assessment and Plan Start: 07/15/21 11:34 Freq: NEEDED Status: Discharge Protocol: Document 07/15/21 08:45 AB (Rec: 07/15/21 11:55 AB [email or web address]) PT Summary Assessment and Plan Potential Rehabilitation Potential Good Status of Condition at Evaluation Stable Summary Impairments Pain,ROM,Strength,Balance, Coordination,Sensation,Tone, Cognition,Bed Mobility, Transfers,Gait,Activity Tolerance Assessment Summary pt requiring SBA to CGA with mobility using FWW. pt plans to go home and her BF and son will assist her at home. pt stated that she has outpt PT set up. Pt may go home when medically stable. Goals Bed Mobility Goal Independent Transfer Goal Independent,Front Wheeled Walker Gait Goal Independent,Front Wheel Walker Gait Distance 250 Other Goals up/down 1 steps using FWW mod I Days to Meet Goals 3 Frequency of Treatment Frequency Of Treatment Twice a Day Treatment Plan Physical Therapy Treatment Plan Bed Mobility Training,Transfer Training,Gait Training, Therapeutic Exercise,Balance Retraining,Post Op Education, Discharge Planning,Hot or Cold Pack,Neuromuscular Re-ed, Coordination Retraining,Manual Therapy Precautions Anterior Hip Precautions No Hip Extension,No Hip External Rotation Weight Bearing Status Weight Bearing Status Weight Bear as Tolerated Allowed Weight Bearing Amount (enter % RLE WBAT or #) (%) Recommendations To Nursing Amount of Assist Needed 1 Person Assist Discharge Recommendations PT Discharge Recommendations Home with Assistance, Outpatient PT Transportation Needs at Discharge Private Vehicle
[2021-07-15 09:15] VITALS: BP 120/67; PULSE 73; RESP 16; TEMP 36.9
--- NOTE | 2021-07-15 11:37 | PC.NURSE ---
Day shift: Paperwork signed and all questions answered. No MD scripts. Pt has all personal belongings. [facility] remains [facility]I. [facility] ok. PPP. Taken to car in by RN student Shay. Pt's friend is driving her home. Medicated for pain per MAR just prior to d/c. Pt lives in [place].
== END 2021-07-15 11:41 | disposition home or self-care (01) ==
LOC: OR 09:25 → AC 09:25
PROVIDERS: Admitting Provider Orthopaedic Surgery; Family Provider Physician Assistant Medical; PCP Physician Assistant Medical; Referring Provider Orthopaedic Surgery; Visit Provider Orthopaedic Surgery
PROC: (CPT 27130; principal; 2021-07-14 13:45)
DX: M16.11 Unilateral primary osteoarthritis, right hip (principal); E03.9 Hypothyroidism, unspecified
CPT/HCPCS: 27130; 36415; 73502; 76000; 85014; 85018; 90471; 90662; 94762; 97116; 97161; 97530; C1776; G0378; C9290; J0171; J0690; J1100; J2250; J2405; J2704; J3010; J3410

== ENCOUNTER → 2021-09-18 12:00 | Outpatient (CLI) | payer OTHER, SELFPAY ==
[2021-07-14 17:47] VITALS: BMI 21.4
--- NOTE | 2021-09-18 12:03 | DI.CT.S_ITS ---
PROCEDURE: CT UE LT WO CON INDICATIONS: osteoarthritis left shoulder TECHNIQUE: Noncontrast 1-1.5 mm thick sections acquired from the acromioclavicular joint to the inferior scapula, with coronal and sagittal reformatting. COMPARISON: [facility] [place], CR, XR SHOULDER 2+ VIEWS LEFT, 09/14/2021, 16:26. FINDINGS: Image quality: Excellent. Bones: Shoulder alignment is anatomic. No acute fracture or dislocation is seen. There is moderate to severe glenohumeral joint osteoarthritis and moderate acromioclavicular joint osteoarthritis with joint space narrowing, subchondral sclerosis and marginal osteophyte formations. No suspicious bony lesion. Visualized left upper ribs are grossly intact. Soft tissues: Mild supraspinatus muscle atrophy is noted. No full-thickness rotator cuff tendon rupture. No significant joint effusion is seen. No calcified intra-articular loose body. No abnormal soft tissue calcifications. No left axillary lymphadenopathy. Visualized left lung ruiz show mild dependent atelectasis posteriorly. No pleural effusion or pneumothorax. IMPRESSION: 1. Moderate to severe glenohumeral joint osteoarthritis and moderate acromioclavicular joint osteoarthritis. No fracture or dislocation. No suspicious bony lesion. 2. Mild supraspinatus muscle atrophy. No full-thickness rotator cuff tendon rupture. No abnormal soft tissue calcifications. 3. No significant joint effusion or intra-articular loose bodies. Dictated by: Ismael Mullins M.D. on 09/18/2021 at 12:28 Approved by: Ismael Mullins M.D. on 09/18/2021 at 13:04
== END ==
PROVIDERS: Family Provider Physician Assistant Medical; PCP Physician Assistant Medical; Referring Provider Orthopaedic Surgery; Visit Provider Orthopaedic Surgery
DX: M19.012 Primary osteoarthritis, left shoulder (principal); M62.512 Muscle wasting and atrophy, not elsewhere classified, left shoulder
CPT/HCPCS: 73200

== ENCOUNTER → 2021-11-10 13:12 | Outpatient (CLI) | payer OTHER, SELFPAY ==
[2021-07-14 17:47] VITALS: BMI 21.4
[2021-11-10 14:19] LABS: Add Manual Diff / Slide Review NO; Basophils Absolute Auto 0 /uL (0-100); Basophils Percent Auto 0.3 % (0-2); Eosinophils Absolute Auto 0 /uL (0-450); Eosinophils Percent Auto 0.5 % (2-4); Hematocrit 37.6 % (36-46); Hemoglobin 12.7 g/dL (12.0-16.0); Lymphocytes Absolute Auto 1600 /uL (1100-4500); Lymphocytes Percent Auto 29.5 % (25-40); Mean Corpuscular HGB Conc 33.6 % (30-36); Mean Corpuscular Hemoglobin 31.9 PG (26-34); Mean Corpuscular Volume 94.7 fL (80-100); Monocytes Absolute Auto 300 /uL (0-900); Monocytes Percent Auto 6.3 % (3-14); Neutrophils Absolute Auto 3400 /uL (1500-7000); Neutrophils Percent Auto 63.4 % (50-75); Platelet Count 178 X10^3/uL (150-400); Red Blood Cell Count 3.97 X10^6/uL (4.0-5.2); White Blood Cell Count 5.4 X10^3/uL (4.5-11.0)
[2021-11-10 14:27] LABS: Hemoglobin A1C% w Est Avg Glu 5.6 % (4.0-6.0)
[2021-11-10 16:30] LABS: Appearance Urine UA CLEAR; Bilirubin Urine UA NEGATIVE (NEGATIVE); Color Urine UA YELLOW; Glucose Urine UA NEGATIVE (Negative); Ketones Urine UA NEGATIVE (NEGATIVE); Leukocyte Esterase Urine UA TRACE (NEGATIVE); Nitrite Urine UA NEGATIVE (Negative); Occult Blood Urine UA NEGATIVE (Negative); Protein Urine UA NEGATIVE (Negative); Urobilinogen Urine UA 0.2 E.U./dL (0.2)
[2021-11-10 16:33] LABS: BUN Creatinine Ratio 27.4 (6-22); Blood Urea Nitrogen 17 mg/dL (7-17); Calcium 9.2 mg/dL (8.4-10.2); Carbon Dioxide 30 mmol/L (22-32); Chloride 106 mmol/L (98-107); Estimated Glomerular Filt Rate > 60.0 mL/min (>60); Glucose 88 mg/dL (80-110); HEMOLYSIS < 15 (0-50); Potassium 4.5 mmol/L (3.4-5.1); Sodium 141 mmol/L (137-145)
[2021-11-10 16:42] LABS: RBC Urine 1-5/HPF (0-5/HPF); Squamous Epithelial Cell Urine None Seen (0-5/HPF); WBC Urine 1-5/HPF (0-5/HPF)
[2021-11-10 16:43] LABS: Bacteria Urine Occasional (0-1); Culture Indicated Urine Specimen Cultured
== END ==
PROVIDERS: Family Provider Physician Assistant Medical; PCP Physician Assistant Medical; Referring Provider Orthopaedic Surgery; Visit Provider Orthopaedic Surgery
DX: R73.9 Hyperglycemia, unspecified (principal); Z01.812 Encounter for preprocedural laboratory examination; N39.0 Urinary tract infection, site not specified
CPT/HCPCS: 36415; 80048; 81001; 83036; 85025; 87086

== ENCOUNTER → 2021-11-30 11:18 | Outpatient (CLI) | payer OTHER, SELFPAY ==
[2021-07-14 17:47] VITALS: BMI 21.4
[2021-11-30 14:11] LABS: COVID19 -Nasal RAPID Negative (Negative)
== END ==
PROVIDERS: Family Provider Physician Assistant Medical; PCP Physician Assistant Medical; Visit Provider Nurse Practitioner Family
DX: Z20.822 Contact with and (suspected) exposure to COVID-19 (principal)
CPT/HCPCS: 87635; C9803

== ENCOUNTER 2021-12-02 08:20 | Day surgery (SDC) | payer OTHER, SELFPAY ==
[2021-07-14 17:47] VITALS: BMI 21.4
[2021-11-30 13:07] VITALS: BMI 21.4
[2021-12-02] VITALS (13 sets, daily range): BP systolic 112–146; BP diastolic 55–80; PULSE 60–72; RESP 14–18; TEMP 36.1–36.6; O2SAT 93–99; BMI 21.4
--- NOTE | 2021-12-02 08:37 | DI.RAD.S_ITS ---
PROCEDURE: XR SHOULDER LT 1V INDICATIONS: post op total shoulder TECHNIQUE: 1 views of the shoulder were acquired. COMPARISON: [facility] [place], [place], XR SHOULDER 2+ VIEWS LEFT, 09/14/2021, 16:26. FINDINGS: Bones: Postsurgical changes related to left shoulder arthroplasty. Orthopedic hardware is in expected position. Soft tissues: No suspicious soft tissue calcifications. IMPRESSION: Expected postsurgical change for left shoulder arthroplasty. Dictated by: Soniya Mendez MD, PhD on 12/02/2021 at 13:39 Approved by: Soniya Mendez MD, PhD on 12/02/2021 at 13:40
[2021-12-02] MEDS: ACETAMINOPHEN 325 MG TABLET 975 MG PO (08:57)
[2021-12-02] MEDS: PREGABALIN 75 MG CAPSULE PO (08:58)
[2021-12-02] MEDS: CELECOXIB 200 MG CAPSULE PO (08:58)
[2021-12-02] MEDS: LACTATED RINGERS 1,000 ML 42 ML IV (09:00)
--- NOTE | 2021-12-02 09:40 | PM.PREOP ---
Pre-operative Note COVID-19 COVID-19 status: Negative Result date/Date tested (Pos, Neg/Pending): 11/30/21 Interval Note History & Physical reviewed/Exam performed by Physician: Yes Changes to H&P: No
--- NOTE | 2021-12-02 09:41 | PM.OP.1 ---
Operative Date/Time/Diagnoses Date of procedure: 12/02/21 Time of procedure: 11:45 Pre-op diagnosis: Left shoulder osteoarthritis Post-op diagnosis: same Procedure & Clinicians Procedure: Left total shoulder replacement Same procedure as scheduled: Yes Indications: The patient has had progressively worsening left shoulder pain with radiographic changes consistent with arthritis. Non-operative management has failed and the patient has requested total shoulder replacement. The risks, benefits and alternatives to surgery were discussed with the patient prior to proceeding. Risks discussed included, but were not limited to, failure to relieve pain, stiffness, infection, nerve damage, deep venous thrombosis, pulmonary embolism, stroke, coma, heart attack, permanent paralysis and , as well as the potential need for eventual revision of the prosthetic. Surgeon: Waylon Grimes Commercial Light Fixture Assembler: Ray Seaman Click Yes if Unassisted: No Anesthesia Type: General, Peripheral nerve block and Local Operative Notes Findings: Severe osteoarthritis of the left shoulder with large, circumferential humeral osteophyte. Closure Type: primary Specimen(s): none sent Prosthetic devices, grafts, tissues, transplants, or devices: Implants used in this procedure manufactured by the [facility] and included a canal sparing size 1 humeral stem and neck with a 46 x 16 mm humeral head and a 46 mm all polyethylene E +pegged glenoid. Applied: implant(s) Estimated Blood Loss (mL): 100 Blood products transfused: none Procedure in detail: The patient was seen in the pre-operative area, where the patient identified the left shoulder as the operative site and this was marked with my initials. The patient received pre-operative antibiotics, underwent an interscalene block, and was taken to the operating room and placed on the operative table in the supine position. After satisfactory anesthesia, a full ?time out? was performed. The patient was repositioned in the ?beach chair? position using a dedicated positioner. All pressure points were well padded, and the knees were slightly bent to prevent tension on the sciatic nerves. The left arm was prepared from the fingers to the base of the neck with ChloroPrep in the usual fashion and draped through sterile drapes. An approximately 12 cm incision was created, starting at the clavicle above the coracoid process and extended towards the deltoid insertion. The deltopectoral interval was used to access the shoulder. The cephalic vein was taken laterally. A self retaining retractor was placed. The ?three sisters? were identified and cauterized. The axillary nerve was palpated and protected throughout the case. The biceps was released from its groove and tenodesed over the top of the pectoralis major tendon. The subscapularis was released from the lesser tuberosity with a subscapularis tenotomy and tagged for later repair. The shoulder was dislocated and a cutting guide was used for the proximal humeral osteotomy in 30 degrees of retroversion. The bone density was manually tested by attempting to put my thumb into the metaphysis and it was found to be firm. We therefore elected to proceed with the canal sparing option. The guide pin was placed in the center of the femoral osteotomy and over reamed with the collar Reamer and the central cannulated Reamer. A size 1 broach was then placed, the guide pin was then removed. Humeral protector was then placed. We then removed the self-retaining retractor and placed retractors to access the glenoid. The subscapularis was released with a ?360 degree release? with care being taken to protect the axillary nerve with the inferior portion of this procedure. The remnant of labrum and biceps stump were removed. The appropriate size reamer was chosen with the glenoid sizer, and the guide pin placed. The glenoid was appropriately reamed. The guide for the peripheral holes was used and the center hole enlarged. The trial glenoid was placed with good stability. We then cemented the final implant into place after irrigating the peg holes and drying them with thrombin-soaked Gelfoam. We returned our attention to the humerus, a trial humeral head was applied and a trial reduction performed. Stability was checked with 50% posterior translation with spontaneous reduction, 45? external rotation at the side with the subscapularis held in the repaired position and 70? of internal rotation in the ?[place] position?. This was felt to be satisfactory and the appropriate implants were opened. The humeral prosthetic was impacted into the humerus. The humeral head was applied when the stem was still slightly proud and impacted to both seat the head and fully seat the stem. The joint was relocated one final time. The joint was irrigated and the subscapularis repaired to the remaining lateral stump with [id number] #2 Ethibond sutures. The top of the subscapularis was closed to the leading edge of the supraspinatus with a figure of 8 #2 Ethibond to close the rotator interval. The deltopectoral interval was closed with interrupted 0 Vicryl. The subcutaneous layer was closed with 3-0 Vicryl, and the skin with a running 3-0 V-Lock suture and Dermabond. An Aquacel Ag dressing was applied, the patient?s arm was placed in a sling, and the patient was taken to recovery having tolerated the procedure well. Post-operative Condition: stable Disposition: PACU Plan for aftercare: The patient will be maintained on a standard total shoulder replacement protocol with passive range of motion limited to 90 degrees forward flexion, 0 degrees external rotation at the side, 0 degrees abduction and internal rotation to the body. The patient will receive aspirin and sequential compression devices for DVT prophylaxis. The patient will be discharged home when safe for the home environment, likely tomorrow.
--- NOTE | 2021-12-02 10:19 | SUR.PREOP ---
Block start time [1002] . Monitoring initiated and maintained throughout procedure. Oxygen given per anesthesiologist instructions. Patient medicated by anesthesia. Patient remained stable throughout procedure, no adverse reactions noted. Block end time [1010].
[2021-12-02] MEDS: CEFAZOLIN 2 GM/20 ML SYRINGE IV (10:20)
[2021-12-02] MEDS: TRANEXAMIC ACID 1,000 MG VIAL 1000 MG INJ ×2 (10:28→11:40)
--- NOTE | 2021-12-02 10:48 | SUR.OPER ---
Beach chair with Schlein shoulder positioner. Lower body on padded OR bed. Head in foam padded head cradle, secured with straps. Non-operative arm secured <90 degrees abduction. Pillow under knees. Safety belt at thigh. Cloth tape over blanket over lower legs.
[2021-12-02] MEDS: BUPIVACAINE 0.5% (PF) 30 ML, EPINEPHrine 0.15 MG INJ (10:59)
[2021-12-02] MEDS: THROMBIN (RECOMBINANT) 5,000 UNIT VIAL 5000 UNIT TOP (11:03)
--- NOTE | 2021-12-02 11:03 | PM.PROC.1 ---
Procedures Date/Time Date of procedure: 12/02/21 Time of procedure: 10:00 Nerve Block Time out performed: Yes Local anesthetic used: other (10mL 0.5% Ropivacaine, 5mL 1% Lidocaine w/ epi) Location of anesthetic used: interscalene Amount of anesthesia used (mL): 20 Nerve blocks: brachial plexus (interscalene) Procedure successful: Yes Patient tolerated procedure: well Complications: none Additional comments: Brachial plexus nerve block for post operative pain management. Risks and benefits discussed, including bleeding, infection, intravascular injection, nerve damage, block failure. Standard ASA monitors, NC O2. Pt supine. Chloroprep site preparation, sterile technique. Brachial plexus identified with US guidance, traced from supraclavicular to interscalene. 1mL 2% lidocaine skin wheal. 22g x 50mm Pajunk advanced with in-plane US guidance to brachial plexus. Negative aspiration. LA injected with intermittent negative aspiration. Good LA spread noted on US. No pain, no paraesthesia. Pt tolerated procedure well. Vital signs stable. To OR.
[2021-12-02] MEDS: LACTATED RINGERS 1,000 ML 100 ML IV (13:54)
[2021-12-02] MEDS: ACETAMINOPHEN 325 MG TABLET 650 MG PO (14:36)
--- NOTE | 2021-12-02 16:00 | PT.IIE ---
Current Diagnoses Primary osteoarthritis, left shoulder (12/02/21) Surgery Performed Operation Date: 12/02/21 10:00 Actual Procedures p Total Shoulder Arthroplasty(Left) - Waylon Grimes MD Medical History (Last Reviewed 07/15/21 @ 08:09 by Azra He PA-C) Cervical spondylosis with radiculopathy Degenerative joint disease (DJD) of hip Easy bruisability Facet arthropathy, lumbar History of Mohs micrographic surgery for skin cancer Hypothyroid Left hip pain Lumbosacral spondylosis Osteoarthritis Rotator cuff impingement syndrome of left shoulder Seasonal allergies Spondylolisthesis at L4-L5 level Physical Therapy Inpatient Evaluation/Re-Eval M1 PT/OT-IP Prior Functional Status Start: 12/02/21 18:07 Freq: NEEDED Status: Active Protocol: Document 12/02/21 16:00 AB (Rec: 12/02/21 18:18 AB [id number]) Medical Review Prior Functional Status Medical History Reviewed Yes Communication able to make needs known Mobility and Gait pt stated that she is independent with all mobilities and ambulation without AD Social History Household Members none Living Arrangements House Number of Floors (Floors) Two Floors Number of Stairs To Enter/Railing? elevator to get to bedroom level 1 step to enter the house Home Environment High Toilet,Walk in Shower, Built-In Shower Seat Home Equipment Hand Held Shower Additional Social History Comment pt's boyfriend will stay with her for ~ 10 days to assist M2 PT-IP Current Condition Start: 12/02/21 18:07 Freq: NEEDED Status: Active Protocol: Document 12/02/21 16:00 AB (Rec: 12/02/21 18:18 AB [id number]) Physical Therapy Current Condition Current Condition Evaluation Date 12/02/21 Treatment Diagnosis s/p L TSR; difficulty in walking Onset Date 12/02/21 M3 PT-IP Subjective Start: 12/02/21 18:07 Freq: NEEDED Status: Active Protocol: Document 12/02/21 16:00 AB (Rec: 12/02/21 18:18 AB [id number]) Subjective Physical Therapy Visit Type Type Initial Evaluation Visit Start Time 16:00 Visit Stop Time 16:50 Total Visit Minutes 50 Number of PROGRAMM[employer] Visits 0 Physical Therapy Visit Comments Patient Comments agreeable to do PT Therapy Pain Assessment Pain When Pain Assessed At Rest Pain Present Pain Present Pain Reported Location Left Shoulder Intensity 2 Scale Used Numeric (0 - 10) M4 PT-IP Mobility and Gait Start: 12/02/21 18:07 Freq: NEEDED Status: Active Protocol: Document 12/02/21 16:00 AB (Rec: 12/02/21 18:18 AB [id number]) PT-Bed Mobility Assessment Supine to Sit Supine to Sit Standby Assistance Sit to Supine Sit to Supine Standby Assistance PT-Transfer Assessment Sit to and From Stand Sit to and from Stand Standby Assistance Equipment Transfer Assistive Device None,Gait Belt Orthotic/Prosthetic Devices or Brace: Yes Comments Mobility Comments pt supine in bed. BF in room. pt completed supine to sit SBA. educated pt and BF regarding pt's shoulder precautions, pendulum, elbow/ wrist/hand exercises and pt completed exercises/pendulum. educated BF regarding donning /doffing sling. pt provided with a proper size sling as previous sling provided after surgery was too small. asked nurse for orders. BF was able to put sling on pt . pt can be impulsive and needs cues not to move L shoulder. educated pt on positions techniques for ADL needs. pt ambulate din room without AD SBA and completed up/down step stool without AD SBA. pt sat on EOB. pt and BF without any other concerns. pt wants to go home today. Gait Assessment Gait Gait Assistance Required: Standby Assistance Distance (Feet) 40 Able to Maintain Weight Bearing Status Yes During Gait Assistive Devices Assistive Device None,Gait Belt Orthotic/Prosthetic Devices or Brace: Yes Factors Limiting Gait Function Factors Limiting Gait Function Limited Range of Motion,Pain Stair Climbing Assessment Evaluation Level of Assist On Stairs Standby Assistance Devices Stair Climbing Assistive Devices None Technique/Endurance Stair Climbing Direction Ascend and Descend Stair Climbing Technique Step to Step Number of Steps Climbed 1 Query Text: Stair Climbing Set # Repetitions (reps) 2 PT-Balance Assessment Sitting Balance and Reactions Static Sitting Balance Ability Good Dynamic Sitting Balance Ability Good Standing Balance and Reactions Static Standing Balance Ability Good Dynamic Standing Balance Ability Good Device Used without AD M5 PT-IP Objective Assessments Start: 12/02/21 18:07 Freq: NEEDED Status: Active Protocol: Document 12/02/21 16:00 AB (Rec: 12/02/21 18:18 AB [id number]) Orientation Orientation/Cognition Level of Alertness Alert Orientation Name Language Function Ability No Deficits Noted Safety Awareness Decreased Safety Awareness Memory Description No Deficits Noted Gross Range of Motion Lower Extremity ROM Assessment Within Functional Limits Strength Lower Extremity Strength Assessment Within Functional Limits Sensation Assessment Comments Sensation Comments KAIN still has decrease motor control M6 PT-IP Treatment Start: 12/02/21 18:07 Freq: NEEDED Status: Active Protocol: Document 12/02/21 16:00 AB (Rec: 12/02/21 18:18 AB [id number]) Physical Therapy Treatment Exercises Exercises Shoulder Pendulums,Elbow Flexion/Extension,Wrist ROM, Hand ROM Education Education Provided Precautions,Weight Bearing Status,Post-Op Packet,Safety M7 PT-IP Assessment and Plan Start: 12/02/21 18:07 Freq: NEEDED Status: Active Protocol: Document 12/02/21 16:00 AB (Rec: 12/02/21 18:18 AB [id number]) PT Summary Assessment and Plan Potential Rehabilitation Potential Good Status of Condition at Evaluation Stable Summary Impairments Pain,ROM,Strength,Balance, Coordination,Sensation,Tone, Cognition,Bed Mobility, Transfers,Gait,Activity Tolerance Assessment Summary pt s/p L TSA and just had surgery this morning. pt wanting to go home today. Assessed mobility and educated on shoulder precautions. educated BF regarding sling management and reminding pt regarding her precautions as pt can be impulsive. pt and BF without any other concerns. Goals Bed Mobility Goal Independent Transfer Goal Independent Gait Goal Independent Gait Distance 250 Other Goals up/down 1 steps mod I Days to Meet Goals 3 Frequency of Treatment Frequency Of Treatment Twice a Day Treatment Plan Physical Therapy Treatment Plan Bed Mobility Training,Transfer Training,Gait Training, Therapeutic Exercise,Balance Retraining,Post Op Education, Discharge Planning,Hot or Cold Pack,Neuromuscular Re-ed, Coordination Retraining,Manual Therapy Weight Bearing Status Weight Bearing Status Non-Weight Bearing Allowed Weight Bearing Amount (enter % LUE NWB or #) (%) Recommendations To Nursing Amount of Assist Needed Standby Assistance Discharge Recommendations PT Discharge Recommendations Home with Assistance,LTAC Transportation Needs at Discharge Private Vehicle
[2021-12-02] MEDS: IBUPROFEN 400 MG TABLET PO (16:52)
--- NOTE | 2021-12-02 17:28 | PC.NURSE ---
Rec'd pt from PACU to rm 215 at 1305. Pt is AO x4 and making her needs known with clear, logical speech. CGA to BR to void. Pt is using a sling to left arm. Left shoulder aquacell is CDI. Pt is able to move fingers on left hand but reports numbness to arm which is consistent with MATERIALS ASSISTANTrisk assessment analyst following regional nerve block. Pt denies pain. Ice pack is on left shoulder. IV fluids to PIV. Oriented pt to room, routine, call light, med regimen, plan of care. Pt verbalizes understanding. Dr. Grimes rounded. Orders recevied to dc home. Pt worked with PT. Reports pain well controlled. Dressed herself. DC education done per mary RN.
== END 2021-12-02 17:25 | disposition home or self-care (01) ==
LOC: OR 08:23 → AC 08:34
PROVIDERS: Family Provider Physician Assistant Medical; PCP Physician Assistant Medical; Referring Provider Orthopaedic Surgery; Visit Provider Orthopaedic Surgery
PROC: (CPT 23472; principal; 2021-12-02 10:00)
DX: M19.012 Primary osteoarthritis, left shoulder (principal); E03.9 Hypothyroidism, unspecified
CPT/HCPCS: 23472; 64450; 73020; 97161; 97530; C1776; J0171; J0690; J1100; J2250; J2405; J2704; J3010

== ENCOUNTER → 2022-02-27 10:53 | Outpatient (CLI) | payer OTHER, SELFPAY ==
[2021-12-02 13:45] VITALS: BMI 21.4
--- NOTE | 2022-02-27 10:54 | DI.MRI.S_ITS ---
PROCEDURE: MR HAND RT WO/W CON INDICATIONS: Chondrocalcinosis TECHNIQUE: Noncontrast coronal T1 spin echo and STIR, sagittal T1 spin echo with fat saturation and STIR, axial T1 spin echo and T2 fast spin echo with fat saturation. After the administration of contrast, axial/sagittal/coronal T1 spin echo with fat saturation through the right hand. COMPARISON: [facility], CR, XR HAND 3+ VIEWS BILATERAL, 07/30/2021, 16:41. FINDINGS: Image quality: Excellent. Bones: Joint space narrowing and subchondral sclerosis throughout right hand and wrist joints are seen. There are subcortical cystic areas throughout carpal bones with mild adjacent edema most prominent involving triquetrum and 1st metacarpal base as well as proximal portion of lunate and distal portion of triquetrum. Contrast enhancement in the above-mentioned carpal bones and 1st metacarpal base is also seen. Significant joint space narrowing, subchondral sclerosis are noted throughout interphalangeal joints particularly involving 2nd through 4th DIP joints. No definite bony erosion in the phalanges are seen. Soft tissues: Small amount of fluid within 1st CMC joint is seen with synovial thickening and enhancement concerning for low-grade synovitis. No soft tissue masses are visualized. The scanned muscles demonstrate normal overall bulk and internal signal. No soft tissue mass or fluid collection is seen. Extensor and flexor tendons are grossly intact. No signs of tenosynovitis . IMPRESSION: 1. 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 2. Likely osteoarthritic changes throughout interphalangeal joints and MCP joints more prominent involving 2nd through 4th DIP joints. 3. No fracture or dislocation. No suspicious intraosseous lesion or osteonecrosis. 4. Suggestion of synovitis involving 1st CMC joint. No enhancing soft tissue mass. No full-thickness tendon rupture. No ganglion cyst or discrete drainable fluid collection. Dictated by: Ismael Mullins M.D. on 03/01/2022 at 13:54 Approved by: Ismael Mullins M.D. on 03/01/2022 at 14:00
== END ==
PROVIDERS: Family Provider Physician Assistant Medical; PCP Physician Assistant Medical; Referring Provider Specialist/Technologist Athletic Trainer; Visit Provider Specialist/Technologist Athletic Trainer
DX: M11.20 Other chondrocalcinosis, unspecified site (principal); R93.89 Abnormal findings on diagnostic imaging of other specified body structures; Z13.89 Encounter for screening for other disorder
CPT/HCPCS: 73220; A9579

== ENCOUNTER → 2022-07-09 10:23 | Outpatient (CLI) | payer OTHER, SELFPAY ==
[2021-12-02 13:45] VITALS: BMI 21.4
--- NOTE | 2022-07-09 10:30 | DI.CT.S_ITS ---
PROCEDURE: CT SOFT TISSUE NECK W CON INDICATIONS: CERVICAL LYMPADENOPATHY TECHNIQUE: After the administration of intravenous contrast, 3.0 mm axial sections acquired from the sella to the aortic arch. Additional oblique axial 3.0 mm sections acquired through the pharynx. 3 mm thick coronal and sagittal reformats were generated. For radiation dose reduction, the following was used: automated exposure control. COMPARISON: None. FINDINGS: Image quality: Excellent. Lymph nodes: No enlarged lymph nodes seen throughout the neck. Vessels: Visualized vasculature appears patent. Neck spaces: The oropharynx, nasopharynx, and pharynx demonstrate no mucosal lesions. The vocal cords, false vocal cords, pyriform sinuses, epiglottis, vallecula, and tongue base all appear normal. Extramucosal spaces appear unremarkable. Glands: The parotid and submandibular glands appear normal. Thyroid gland is unremarkable. Miscellaneous: Visualized brain and orbits appear normal. Lung apices appear clear. Superficial soft tissues appear normal. Bones: No suspicious bony lesions. Visualized sinuses and mastoids appear unremarkable. IMPRESSION: No visualized adenopathy. Dictated by: Arleth Fonseca M.D. on 07/09/2022 at 15:32 Approved by: Arelth Fonseca M.D. on 07/09/2022 at 15:39
[2022-07-09 11:28] LABS: Estimated Glomerular Filt Rate > 60 mL/min (>60)
[2022-07-09 12:39] LABS: Add Manual Diff / Slide Review NO; Basophils Absolute Auto 0 /uL (0-100); Basophils Percent Auto 0.4 % (0-2); Eosinophils Absolute Auto 0 /uL (0-450); Eosinophils Percent Auto 0.9 % (2-4); Hematocrit 39.3 % (36-46); Hemoglobin 13.3 g/dL (12.0-16.0); Lymphocytes Absolute Auto 1000 /uL (1100-4500); Lymphocytes Percent Auto 18.5 % (25-40); Mean Corpuscular HGB Conc 33.9 % (30-36); Mean Corpuscular Hemoglobin 32.9 PG (26-34); Mean Corpuscular Volume 97.1 fL (80-100); Monocytes Absolute Auto 600 /uL (0-900); Monocytes Percent Auto 10.8 % (3-14); Neutrophils Absolute Auto 3600 /uL (1500-7000); Neutrophils Percent Auto 69.4 % (50-75); Platelet Count 158 X10^3/uL (150-400); Red Blood Cell Count 4.05 X10^6/uL (4.0-5.2); Red Cell Distribution Width 13.4 % (11.6-14.8); White Blood Cell Count 5.2 X10^3/uL (4.5-11.0)
[2022-07-09 12:53] LABS: Alanine Aminotransferase 19 IU/L (<35); Albumin 4.2 g/dL (3.5-5.0); Albumin Globulin Ratio 1.8 (1.0-2.8); Alkaline Phosphatase 69 U/L (38-126); Aspartate Aminotransferase 28 IU/L (14-36); BUN Creatinine Ratio 17.2 (6-22); Bilirubin Total 0.3 mg/dL (0.2-1.3); Blood Urea Nitrogen 11 mg/dL (7-17); C-Reactive Protein Quant < 0.5 mg/dL (<1.0); Carbon Dioxide 27 mmol/L (22-32); Chloride 104 mmol/L (98-107); Estimated Glomerular Filt Rate > 60 mL/min (>60); Globulin 2.4 g/dL (1.7-4.1); Glucose 84 mg/dL (80-110); HEMOLYSIS < 15 (0-50); Potassium 4.3 mmol/L (3.4-5.1); Sodium 141 mmol/L (137-145); Total Protein 6.6 g/dL (6.3-8.2)
[2022-07-09 13:44] LABS: Erythrocyte Sedimentation Rate 8 MM/HR (0-20)
== END ==
PROVIDERS: Emergency Medicine; Family Provider Physician Assistant Medical; PCP Physician Assistant Medical; Referring Provider Specialist/Technologist Athletic Trainer; Visit Provider Specialist/Technologist Athletic Trainer
DX: R59.0 Localized enlarged lymph nodes (principal); M11.20 Other chondrocalcinosis, unspecified site; M15.9 Polyosteoarthritis, unspecified; Z79.899 Other long term (current) drug therapy
CPT/HCPCS: 36415; 70491; 80053; 82565; 85025; 85651; 86140; Q9967

== ENCOUNTER 2023-03-03 08:18 | Day surgery (SDC) | payer OTHER, SELFPAY ==
[2021-12-02 13:45] VITALS: BMI 21.4
[2023-01-19 14:39] VITALS: BMI 21.4
[2023-02-25 14:35] VITALS: BMI 21.4
[2023-03-03] VITALS (12 sets, daily range): BP systolic 99–118; BP diastolic 44–67; PULSE 47–68; RESP 10–20; TEMP 36.1–37.2; O2SAT 90–100; BMI 21.4; BMI 24.0
[2023-03-03] MEDS: LACTATED RINGERS 1,000 ML 100 ML IV ×2 (08:42→11:54)
--- NOTE | 2023-03-03 09:57 | PM.PREOP ---
Pre-operative Note COVID-19 Criteria for continued procedure: Non-surgical alternatives not available or appropriate per current SOC Interval Note History & Physical reviewed/Exam performed by Physician: Yes Changes to H&P: No H&P completed within 30 days and has changed as indicated here:: 02/28/23
[2023-03-03] MEDS: CEFAZOLIN 2 GM/100 ML PREMIX 100 ML IV (10:40)
--- NOTE | 2023-03-03 11:11 | SUR.OPER ---
Lithotomy on padded OR bed, head on pillow, arms secured on padded arm boards at <90 degrees abduction. Legs secured in padded yellow fins stirrups.
[2023-03-03] MEDS: BUPIVACAINE 0.25% (PF) 30 ML, EPINEPHrine 0.15 MG INJ (11:15)
--- NOTE | 2023-03-03 12:06 | P.OP_ITS ---
Operative Date/Time/Diagnoses Date of procedure: 03/03/23 Time of procedure: 12:07 Pre-op diagnosis: Symptomatic cystocele and rectocele Post-op diagnosis: same Procedure & Clinicians Procedure: Procedures Operation Date: 03/03/23 09:45 Actual Procedure Side Surgeon p Anterior/Posterior Repair Negin Gold MD Indications: Symptomatic cystocele and rectocele Surgeon: Negin Gold Rewinder Operator Helper: Cem Vargas Operative Notes Findings: Third-degree cystocele Third-degree rectocele Closure Type: primary Specimen(s): none Applied: catheter (To continuous drainage) and other (Vaginal packing in place) Estimated blood loss (mL): 20 Blood products transfused: none Procedure in detail: 2 Allis clamps were placed at the apex of the cystocele. 6 mL of half percent Marcaine with epinephrine were injected and an incision was made with a #10 blade between the 2 Allis clamps. Wide Allis clamps were placed on the midline of the cystocele approximately 5. The mucosa was undermined using the Metzenbaum scissors and the mucosa incised in the midline moving the wide Allis clamps to the edges of the mucosa. The mucosa was dissected off the underlying fascia using an open moistened Ray-Lou and a #10 blade. The fascia was reapproximated with 0 Vicryl with a series of horizontal mattress sutures. The excess vaginal mucosa was excised. The mucosa was closed using simple interrupted sutures with 2-0 Vicryl including the underlying fascia to close the space. The weighted speculum was removed from the vagina. Allis clamps were placed at the mucocutaneous junction at the introitus. 6 mL of half percent Marcaine with epinephrine were injected. An incision was made with a #10 blade between the 2 Allis clamps, and a triangular piece of skin and underlying subcutaneous tissue was removed. Allis clamps were placed in the midline of the rectocele. 10 mL of half percent Marcaine with epinephrine were injected submucosally. The mucosa was undermined using the Metzenbaum scissors and the mucosa incised in the midline, moving the wide Allis clamps to the mucosal edges. The underlying fascia was dissected off of the mucosa using an open moistened Ray-Lou and a #10 blade. The fascia was reapproximated using 0 Vicryl with a series of horizontal mattress sutures. The excess vaginal mucosa was excised. The mucosa was closed using a series of simple interrupted sutures with 2-0 Vicryl including the underlying fascia to close the space. On the perineum 0 Vicryl was used to reapproximate the levator muscle. The subcutaneous layer was closed with 2-0 Vicryl. The skin was closed with 3-0 chromic in a subcuticular fashion. Hemostasis was achieved. A Betadine moistened vaginal pack was placed into the vagina. A rectal exam was done and there were no sutures palpable in the rectum. The urine was clear. Sponge, lap, and instrument counts were correct x-2. The patient tolerated the procedure well, was taken to PACU in stable condition.m Complications: none Post-operative Condition: stable Disposition: PACU Plan for aftercare: To acute care after recovery
[2023-03-03] MEDS: fentaNYL 100 MCG/2 ML INJ IV (12:18)
[2023-03-03] MEDS: OXYCODONE IR 5 MG TABLET PO ×2 (12:26→20:30)
[2023-03-03] MEDS: ACETAMINOPHEN 1,000 MG/100 ML 1000 MG IV (13:15)
[2023-03-03] MEDS: IBUPROFEN 600 MG TABLET PO ×2 (15:17→23:56)
[2023-03-03] MEDS: LACTATED RINGERS 1,000 ML 70 ML IV (15:20)
[2023-03-03] MEDS: DOCUSATE 100 MG CAPSULE 200 MG PO (20:26)
[2023-03-03] MEDS: ACETAMINOPHEN 325 MG TABLET 650 MG PO (20:27)
[2023-03-04] MEDS: ACETAMINOPHEN 325 MG TABLET 650 MG PO ×3 (03:28→13:42)
[2023-03-04 04:47] VITALS: BP 93/41; PULSE 74; RESP 16; TEMP 36.9; O2SAT 94
[2023-03-04] MEDS: IBUPROFEN 600 MG TABLET PO ×2 (06:31→13:41)
[2023-03-04] MEDS: LEVOTHYROXINE 50 MCG TABLET PO (06:31)
[2023-03-04 06:58] VITALS: BP 105/61; PULSE 65
--- NOTE | 2023-03-04 08:24 | PC.NURSE ---
Assess- Patient is alert and oriented x4. She denies pain. Griffiths was taken out this am around 0600 as was vaginal packing. IVF stopped, patient is eating breakfast and drinking her fluids. After she voids in the hat, we will do a post void residual to see how much urine that she has left in her bladder and report this back to the Doctor. Patient has had some ss drainage on her pads.
[2023-03-04 08:31] VITALS: BP 102/51; PULSE 74; RESP 18; TEMP 37.2; O2SAT 95
[2023-03-04] MEDS: DOCUSATE 100 MG CAPSULE 200 MG PO (09:13)
--- NOTE | 2023-03-04 10:47 | CM.DANOTE ---
Patient is a 73 yo female who was admitted on 03/03/23 for Colporrhaphy. Pt has [facility] for insurance and her PCP is Dr. Kandis Estrella. EMR was reviewed. Per OBGYN, pt tolerated her vaginal surgery well and plan of discontinuing her savage and confirm she can void independently and then likely d/c home later today with no identified barriers to discharge. Per RN, pt independent in room and no concerns and pt hopeful to d/c home today via son POV. Pt resides in [place] and is active and independent at baseline. Plan: SW to follow for plan of likely d/c to home today via son POV if able to void independently and no further SW needs at this time. MALIHA [facility] Discharge Planning/Care Management Pre-Anesthesia Assessment Start: 02/25/23 14:35 Freq: Status: Complete Protocol: Document 02/25/23 14:35 [facility] (Rec: 02/25/23 14:39 CAB [id number]) Pre-Anesthesia Assessment Preferred Name Juliette or Maryjane Patient Information Reviewed Via Chart Review Primary Care Provider Kandis Estrella Seen Specialist in Last 12 Months Yes Specialist Seen Er Manager Primary Language Occitan Preferred Language Occitan Evp Strategy Required No Height 152.4 cm Weight 49.895 kg Body Mass Index (BMI) 21.4 Hearing Ability Normal Visual Assist Contacts,Glasses Dentition Type Teeth, Natural Present Barriers to Learning None Hx Anesthesia Reactions No Hx Family Anesthesia Reaction No Hx Malignant Hyperthermia No Hx Blood Transfusions No Hx Blood Transfusion Reaction No Anesthesia Review Requested No Physical Plant Manager No alcohol intake former Smoking Status Former smoker how long ago did patient quit smoking Quit 45 years ago Substance Use Type does not use History of Falling (Recent or History of No ) Patient is completely paralyzed or No completely immobile Mental Status Oriented to own ability Is patient on oxygen? No Does patient have SAMPSON/SOB No Hx Sleep Apnea No CPAP/BIPAP use not prescribed Currently Taking a Beta Rebeka No Can You Climb a Flight of Stairs Without Yes SOB Hx Chest Pain No Hx SOB No Hx Syncope or Dizziness No Anti-Coagulant Therapy No Has a Dental Financial Coordinator No Cardiac Testing No Hx Pacemaker/ICD No Pacemaker Rep Required? No Cardiac Clearance Received Not Applicable Diet Type At Home Regular Dysphagia No Urinary Catheter Present No Hx Urinary Self Catheterization No Diabetes No Patient No Lactating No Hx Drug Resistant Organism No Presence of External or Internal Medical Yes: Face/chin, bilat hips, Devices left shoulder Received a COVID vaccine? Yes: plus Booster Marital Status / Lives With none Patient Discharge Plan Description Return Home Do You Have Any Spiritual Beliefs That No May Affect Your HC Choices? Do You Have Any Cultural Practices That No May Affect Your HC Choices? Emergency Contact Name Dangelo Marinelli(S.O.) Emergency Contact Advance Directives? Yes Advance Directives on File No Power of Community Health Promoter Yes Power of Community Health Promoter Name Reji (son) Power of Community Health Promoter
--- NOTE | 2023-03-04 16:15 | P.DS_ITS ---
History of Present Illness History of Present Illness Date Patient Seen: 03/04/23 Time Patient Seen: 16:15 Chief complaint: Colporrhaphy Narrative: Patient is a 73-year-old who underwent an anterior and posterior repair on March 03, 2023. This was without complication. On the morning of March 04, 2023 her vaginal packing was removed and the Griffiths catheter was removed. She voided 350 cc 3 hours after the catheter was removed and had a postvoid residual of 20 cc. She had very minimal vaginal bleeding. She was ambulating without assistance. She tolerated a diet. Her pain was well controlled. She was discharged home on postop day #1. Discharge Providers Provider Discharge Date: 03/04/23 Primary care physician: Kandis Estrella PA-C Discharge provider: Negin Gold MD Summary Hospital Course Discharge Diagnosis: Symptomatic cystocele and rectocele Status post anterior and posterior repair Hospital Course: Patient is a 73-year-old who underwent an anterior and posterior repair on March 03, 2023. This was without complication. On the morning of March 04, 2023 her vaginal packing was removed and the Griffiths catheter was removed. She voided 350 cc 3 hours after the catheter was removed and had a postvoid residual of 20 cc. She had very minimal vaginal bleeding. She was ambulating without assistance. She tolerated a diet. Her pain was well controlled. She was discharged home on postop day #1. Status at Discharge Cognitive/behavioral status at discharge: oriented Functional status at discharge: independent ambulation Overall status at discharge: patient is progressing back to baseline Time Spent with Patient Time spent: Less than 30 minutes Exam Vital Signs (past 8 hours): - 03/04/23 08:31 Temperature 98.9 F Pulse Rate 74 Respiratory Rate 18 Blood Pressure 102/51 L Pulse Oximetry 95 Oxygen Flow Rate 0 Oxygen Delivery Method Nasal Cannula Oxygen Flow Rate 0 Narrative Exam Narrative: Generally: Patient is sitting up in bed, no acute distress Lungs: Clear to auscultation bilaterally Cardiovascular: Regular rate and rhythm Perineum: Dry [facility] Medical History (Updated 02/28/23 @ 14:48 by Negin Gold MD) Cervical spondylosis with radiculopathy Degenerative joint disease (DJD) of hip Easy bruisability Facet arthropathy, lumbar History of Mohs micrographic surgery for skin cancer Hypothyroid Left hip pain Lumbosacral spondylosis Osteoarthritis Other plastic surgery for unacceptable cosmetic appearance Rotator cuff impingement syndrome of left shoulder Seasonal allergies Spondylolisthesis at L4-L5 level Surgical History (Updated 02/25/23 @ 14:38 by Lissette Varner RN) History of facelift History of tonsillectomy and adenoidectomy 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) History of total replacement of left shoulder joint (12/02/21) History of total right hip arthroplasty (07/14/21) [place] teeth extracted Social History household members: none Smoking Status: Former smoker alcohol intake: former Discharge Assessment & Plan Assessment and Plan Assessment: Postop day # 1 status post anterior and posterior repair Patient doing very well Minimal postvoid residual Plan of Treatment: Discharge to home Follow-up in 2 weeks Discharge instructions reviewed Discharge Plan Discharge Plan Patient Disposition: Home Provider Discharge Comment: Call with fever, chills, or bleeding vaginally more than spotting to light Tylenol 650 mg every 6 hours as needed Stool softener for 6 weeks Discharge orders & Medications Discharge Orders: Discharge (Order); Ordered 03/04/23 Ordered By: Negin Gold Prescriptions: Continued bisacodyl 5 mg tablet,delayed release (DR/EC) 5 mg PO ONCE tretinoin 0.025 % cream 1 applic topical BEDTIME Systane Balance 0.6 % drops 1 drp EYE-BOTH DAILY pseudoephedrine HCl 30 mg Capsule 30 mg PO QD-BID PRN (Reason: seasonal allergies) vitamin B complex Capsule 1 cap PO DAILY levothyroxine 50 mcg Capsule 50 mcg PO DAILY krill oil 500 mg Capsule 500 mg PO DAILY acetaminophen 500 mg capsule 500 mg PO Q4-5H MDD Max 6 tabs per day Qty: 90 0RF cholecalciferol (vitamin D3) 5,000 unit capsule 5,000 unit PO DAILY ascorbic acid (vitamin C) 1,000 mg tablet 500 mg PO DAILY Follow up/Referrals: Negin Gold MD [Physician] - (2 week and 6 week appointments have already been scheduled) Diet/Activity/Treatments Diet: Regular Activity: No heavy lifting, nothing more than a gal of milk for 6 weeks Nothing in the vagina Skin/Wound/Dressing Care Report to your healthcare provider any signs of infection, such as:: chills, fever, increased pain and unusual drainage Visit Report/Discharge Packet Instructions: Cystocele and Rectocele Repair Stand Alone Forms: Patient Portal/API, Surgery Discharge Discharge Data Primary Care Provider: Kandis Estrella Attending Provider: Negin Gold Quality VTE Deep Vein Thrombosis/Pulmonary Embolism Present on Admission: No
== END 2023-03-04 13:52 | disposition home or self-care (01) ==
LOC: OR 08:19 → AC 08:19
PROVIDERS: Family Provider Physician Assistant Medical; PCP Physician Assistant Medical; Referring Provider Obstetrics & Gynecology; Visit Provider Obstetrics & Gynecology
PROC: (CPT 57260; principal; 2023-03-03 09:45)
DX: N81.10 Cystocele, unspecified (principal); N81.6 Rectocele; N81.89 Other female genital prolapse
CPT/HCPCS: 57260; J0131; J0171; J0330; J0690; J1100; J2405; J2704; J3010

== ENCOUNTER → 2023-07-11 16:13 | Outpatient (CLI) | payer OTHER, SELFPAY ==
[2023-03-03 13:21] VITALS: BMI 24.0
[2023-07-11 18:53] LABS: Appearance Urine UA CLEAR; Bilirubin Urine UA NEGATIVE (NEGATIVE); Color Urine UA YELLOW; Glucose Urine UA NEGATIVE (Negative); Ketones Urine UA NEGATIVE (NEGATIVE); Leukocyte Esterase Urine UA NEGATIVE (NEGATIVE); Nitrite Urine UA NEGATIVE (Negative); Occult Blood Urine UA NEGATIVE (Negative); Protein Urine UA NEGATIVE (Negative); Specific Gravity Urine UA <=1.005 (1.000-1.035); Urobilinogen Urine UA 0.2 E.U./dL (0.2)
[2023-07-11 18:55] LABS: pH Urine UA 6.5 (4.5-8.0)
[2023-07-11 19:04] LABS: Bacteria Urine Few (2-10); Culture Indicated Urine Cult Not Indicated; RBC Urine 0-1/HPF (0-5/HPF); Squamous Epithelial Cell Urine 0-1 /HPF (0-5/HPF); WBC Urine 0-1/HPF (0-5/HPF)
== END ==
PROVIDERS: Family Provider Physician Assistant Medical; PCP Physician Assistant Medical; Referring Provider Obstetrics & Gynecology; Visit Provider Obstetrics & Gynecology
DX: N39.41 Urge incontinence (principal)
CPT/HCPCS: 81001

== ENCOUNTER → 2023-07-18 15:23 | Outpatient (CLI) | payer OTHER, SELFPAY ==
[2023-03-03 13:21] VITALS: BMI 24.0
--- NOTE | 2023-07-18 | DI.RAD.S_ITS ---
Bone Density Report Name: FLORIAN REYES Age: 73 Sex: Female Ethnicity: White Date of : 1950 Indication: postmenopausal; screening for osteoporosis; Referring Provider: TONIE YOU Study: Bone densitometry was performed. Exam Date: July 18, 2023 Accession number: [id number] Bone Density: Region BMD T-score Z-score Classification AP Spine(L1, L2, L4) 0.731 -2.8 -0.4 Osteoporosis Total Forearm (Left) 0.406 -3.2 -0.8 Osteoporosis 1/3 Forearm (Left) 0.504 -3.2 -0.7 Osteoporosis UD Forearm (Left) 0.306 -2.4 -0.6 Osteopenia World Health Organization criteria for BMD impression classify patients as: Normal (T-score at or above -1.0), Osteopenia (T-score between -1.0 and -2.5), or Osteoporosis (T-score at or below -2.5). Impression: The patient has osteoporosis, based on the Total Spine T-score. Discussion: INCREASED RISK OF FRACTURE. BONE DENSITY IS UNDESIRABLY LOW AT ONE OR MORE SKELETAL SITES, CONSISTENT WITH POSTMENOPAUSAL OSTEOPOROSIS. This patient's lowest T-score meets the World Health Organization's (WHO) criteria for osteoporosis at one or more sites (T-score -2.5 or below). In untreated patients, the risk of osteoporotic fracture increases approximately two-fold for each 1.0 SD decrease in T-score. Low bone density is not the only risk factor for fracture; also consider factors such as patient's age, frailty or poor health, risk of falling, risk of injury, previous osteoporotic fracture, family history of osteoporosis, cigarette smoking, low body weight, etc. Not everyone with low bone mineral density has osteoporosis; osteomalacia and other metabolic bone disorders should also be considered. Patients who have osteoporosis should be evaluated for specific diseases and conditions (secondary causes) that may cause or contribute to bone loss. The [place] Association of Clinical Endocrinologists (AACE) and National Osteoporosis Foundation (NOF) recommend pharmacologic intervention for all postmenopausal women whose T-score is in this range. The patient should follow a healthful lifestyle (good nutrition with adequate calcium and vitamin D, and appropriate weight-bearing exercise). Follow-Up: Consider a repeat BMD and Vertebral Fracture Assessment (VFA) exam in 2 years or sooner if medically necessary, to reassess this patient's status. Reported by: KISHA VAZQUEZ M.D. on 07/18/2023 4:03:00 PM.
--- NOTE | 2023-07-18 15:31 | DI.MG.S_ITS ---
BILATERAL DIGITAL SCREENING MAMMOGRAM 3D/2D WITH CAD: 07/18/2023 CLINICAL: Routine screening. Comparison is made to exams dated: 06/09/2022 mammogram, 06/08/2021 mammogram, and 04/30/2020 mammogram - [facility]. There are scattered areas of fibroglandular density in both breasts (category b / 25%-50% glandular tissue). Current study was also evaluated with a Computer Aided Detection (CAD) system. There are benign vascular calcifications in the right breast. No significant masses, calcifications, or other findings are seen in either breast. There has been no significant interval change. IMPRESSION: BENIGN There is no mammographic evidence of malignancy. A 1 year screening mammogram is recommended. Based on the Tyrer Cuzick model (a risk assessment model) the patient's lifetime risk is 2.4% and her 10 year risk is 2.2%. According to the ACR, ACS, and NCCN guidelines, an annual breast MRI exam along with mammogram is recommended if the patient's lifetime risk is 20% or greater. This exam was interpreted at Station ID: [id number]. NOTE: For mammograms, a report in lay terms will be sent to the patient. Approximately 15% of breast malignancies will not be visualized mammographically. In the management of a palpable breast mass, a negative mammogram must not discourage biopsy of a clinically suspicious lesion. Electronically Signed By: Joshua hayes/marvin:07/19/2023 11:59:36 letter sent: Normal Exam ACR BI-RADS Category 2: Benign Finding(s) 3342F
== END ==
PROVIDERS: Family Provider Physician Assistant Medical; PCP Physician Assistant Medical; Referring Provider Physician Assistant Medical; Visit Provider Physician Assistant Medical
DX: Z12.31 Encounter for screening mammogram for malignant neoplasm of breast (principal); M81.0 Age-related osteoporosis without current pathological fracture; Z78.0 Asymptomatic menopausal state
CPT/HCPCS: 77063; 77067; 77080; 77081

== ENCOUNTER → 2024-01-09 12:43 | Outpatient (CLI) | payer OTHER, SELFPAY ==
[2023-03-03 13:21] VITALS: BMI 24.0
--- NOTE | 2024-01-09 12:51 | DI.RAD.S_ITS ---
PROCEDURE: XR LUMBAR SPINE 2-3V INDICATIONS: OSTEOPOROSIS TECHNIQUE: 3 views of the lumbar spine were acquired. COMPARISON: [facility], , XR LUMBAR SPINE MIN 4V, 11/07/2019, 15:57. FINDINGS: Bones: 5 [id number] vertebrae are present. Stable 7 mm anterolisthesis of L4 on L5 due to facet arthrosis. Moderate disc height loss at L4-5 and L5-S1. Mild disc height loss at remaining levels. Facet arthrosis of L2 through S1. Soft tissues: Overlying bowel gas pattern is normal. No suspicious soft tissue calcifications. IMPRESSION: No compression deformities. Mild to moderate, multilevel degenerative disc disease and lower lumbar facet arthrosis, progressed since 2019. Stable grade 1 anterolisthesis of L4 on L5 due to facet arthrosis. Dictated by: Dontrell Aviles M.D. on 01/09/2024 at 15:29 Approved by: Dontrell Aviles M.D. on 01/09/2024 at 15:30
--- NOTE | 2024-01-09 12:51 | DI.RAD.S_ITS ---
PROCEDURE: XR THORACIC SPINE 3V INDICATIONS: OSTEOPOROSIS TECHNIQUE: 3 views of the thoracic spine were acquired. COMPARISON: None. FINDINGS: Bones: No fractures or dislocations. No suspicious bony lesions. 12 pairs of ribs are noted, and appear intact where visualized. Mild, multilevel disc height loss. Soft tissues: No paravertebral stripe thickening. IMPRESSION: No acute bony abnormality. No compression deformities. Dictated by: Dontrell Aviles M.D. on 01/09/2024 at 15:30 Approved by: Dontrell Aviles M.D. on 01/09/2024 at 15:31
[2024-01-09 14:33] LABS: Alanine Aminotransferase 20 IU/L (<35); Albumin 4.7 g/dL (3.5-5.0); Alkaline Phosphatase 61 U/L (38-126); Aspartate Aminotransferase 21 IU/L (14-36); BUN Creatinine Ratio 39.7 (6-22); Bilirubin Total 0.5 mg/dL (0.2-1.3); Blood Urea Nitrogen 25 mg/dL (7-17); Calcium 9.7 mg/dL (8.4-10.2); Carbon Dioxide 27 mmol/L (22-32); Chloride 107 mmol/L (98-107); Estimated Glomerular Filt Rate > 60 mL/min (>60); Globulin 2.4 g/dL (1.7-4.1); Glucose 111 mg/dL (80-110); HEMOLYSIS < 15 (0-50); Potassium 4.5 mmol/L (3.4-5.1); Sodium 139 mmol/L (137-145); Total Protein 7.1 g/dL (6.3-8.2)
[2024-01-09 15:13] LABS: Vitamin D 25 Hydroxy (D3) 89.8 ng/mL (30.0-100.0)
[2024-01-10 07:10] LABS: Parathyroid Hormone Int 31 pg/mL (15-65)
== END ==
LOC: LAB 12:47
PROVIDERS: Family Provider Physician Assistant Medical; PCP Physician Assistant Medical; Referring Provider Internal Medicine Endocrinology, Diabetes & Metabolism; Visit Provider Internal Medicine Endocrinology, Diabetes & Metabolism
DX: M81.0 Age-related osteoporosis without current pathological fracture (principal)
CPT/HCPCS: 36415; 72072; 72100; 80053; 82306; 82523; 82570; 83970

== ENCOUNTER → 2024-01-12 12:40 | Outpatient (CLI) | payer OTHER, SELFPAY ==
[2023-03-03 13:21] VITALS: BMI 24.0
[2024-01-12 17:24] LABS: Calcium 24 Hour Urine 173 mg/day (100-300); Calcium Urine Random 7.5 mg/dL; Collection Time Urine 24 Hours; Total Volume Urine 2300 mL
[2024-01-12 17:25] LABS: Collection Time Urine 24 Hours; Creatinine 24 Hour Urine 1012 mg/day (800-1800); Total Volume Urine 2300 mL
== END ==
PROVIDERS: Family Provider Physician Assistant Medical; PCP Physician Assistant Medical; Referring Provider Internal Medicine Endocrinology, Diabetes & Metabolism; Visit Provider Internal Medicine Endocrinology, Diabetes & Metabolism
DX: M81.0 Age-related osteoporosis without current pathological fracture (principal)
CPT/HCPCS: 82340; 82570

== ENCOUNTER → 2024-02-08 13:44 | Outpatient (CLI) | payer OTHER, SELFPAY ==
[2023-03-03 13:21] VITALS: BMI 24.0
--- NOTE | 2024-02-08 13:48 | DI.RAD.S_ITS ---
PROCEDURE: XR SHOULDER LT MIN 2V INDICATIONS: RIGHT SHOULDER PAIN TECHNIQUE: 3 views of the shoulder were acquired. COMPARISON: [facility], CR, XR SHOULDER RT MIN 2V, 02/08/2024, 12:54. FINDINGS: Bones: No fractures or dislocations. No suspicious bony lesions. Visualized ribs appear intact. Acromioclavicular joint space narrowing with osteophytosis. Well-aligned, intact partial shoulder arthroplasty arthroplasty without hardware complication. Soft tissues: No suspicious soft tissue calcifications. IMPRESSION: Well-aligned, intact partial shoulder arthroplasty without hardware complication. Moderate AC osteoarthritis. Dictated by: Dontrell Aviles M.D. on 02/08/2024 at 15:45 Approved by: Dontrell Aviles M.D. on 02/08/2024 at 15:46
--- NOTE | 2024-02-08 13:48 | DI.MRI.S_ITS ---
PROCEDURE: MR SHOULDER RT WO/W CON INDICATIONS: chondrocalcinosis TECHNIQUE: Noncontrast oblique coronal T1 spin echo and T2 fast spin echo with fat saturation, oblique sagittal T1 spin echo and T2 fast spin echo with fat saturation, axial T1 spin echo and T2 fast spin echo with fat saturation through the shoulder. Post-contrast oblique coronal, oblique sagittal, and axial T1 spin echo with fat saturation through the shoulder. COMPARISON: [facility], CR, XR SHOULDER RT MIN 2V, 02/08/2024, 12:54. FINDINGS: Image quality: Excellent. Rotator cuff: Moderate supraspinatus and infraspinatus tendinosis with low-grade bursal surface fraying. Teres minor tendon is intact. There is moderate subscapularis tendinosis and low-grade partial intrasubstance tearing at the superior insertion. No significant disproportionate rotator cuff muscle atrophy is seen. Bones and bursae: No acute trabecular bone injury or fracture. No suspicious intraosseous enhancement. Diffuse grade 3-4 chondromalacia is seen in the glenohumeral joint with subchondral cystic changes and edema and marginal osteophyte formation. There is mild remodeling of the articular surfaces with approximately 7 degrees of glenoid retroversion relative to the midplane of the scapula at the mid glenoid level. Moderate degenerative changes are seen in the acromioclavicular joint with subchondral cystic changes and edema and marginal osteophyte formation. There is a small amount of fluid in the subacromial/subdeltoid bursa. A small glenohumeral effusion is seen with multiple filling defects in the superior subscapularis recess measuring up to 6 mm that are suspicious for loose bodies. Capsule and soft tissues: No enhancing soft tissue mass. Diffuse labral degeneration and chronic degenerative tearing. [id number] proximal biceps long head tendinosis. There is partial effacement of fat signal in the rotator interval. Glenohumeral ligaments appear to be intact. IMPRESSION: 1. Grade 3-4 chondromalacia in the glenohumeral joint with subchondral cystic changes, subchondral edema, marginal osteophyte formation, and remodeling of the articular surfaces resulting in up to 7 degrees glenoid retroversion relative to the midplane of the scapula. 2. Small glenohumeral effusion with multiple small intra-articular loose bodies in the superior subscapularis recess. 3. Moderate acromioclavicular joint osteoarthrosis. 4. Moderate supraspinatus and infraspinatus tendinosis with low-grade bursal surface fraying. No full-thickness rotator cuff tendon tear. 5. Low-grade partial intrasubstance tearing of the subscapularis tendon at the superior insertion superimposed on moderate tendinosis. 6. Hptl-ly-ubtleeix proximal biceps long head tendinosis. 7. No enhancing soft tissue mass. Approved by: Len Weber M.D. on 02/08/2024 at 15:49
--- NOTE | 2024-02-08 13:49 | DI.RAD.S_ITS ---
PROCEDURE: XR SHOULDER RT MIN 2V INDICATIONS: RIGHT SHOULDER PAIN TECHNIQUE: 3 views of the shoulder were acquired. COMPARISON: None. FINDINGS: Bones: No fractures or dislocations. No suspicious bony lesions. Visualized ribs appear intact. Glenohumeral and acromioclavicular joint space narrowing with associated osteophytosis. Soft tissues: No suspicious soft tissue calcifications. IMPRESSION: Moderate shoulder osteoarthritis. Dictated by: Dontrell Aviles M.D. on 02/08/2024 at 15:45 Approved by: Dontrell Aviles M.D. on 02/08/2024 at 15:45
== END ==
PROVIDERS: Family Provider Physician Assistant Medical; PCP Physician Assistant Medical; Referring Provider Specialist/Technologist Athletic Trainer; Visit Provider Specialist/Technologist Athletic Trainer
DX: M75.111 Incomplete rotator cuff tear or rupture of right shoulder, not specified as traumatic (principal); M19.011 Primary osteoarthritis, right shoulder; M19.012 Primary osteoarthritis, left shoulder; M94.211 Chondromalacia, right shoulder; M25.411 Effusion, right shoulder; M11.20 Other chondrocalcinosis, unspecified site; M25.511 Pain in right shoulder; G89.29 Other chronic pain
CPT/HCPCS: 73030; 73223; A9579

== ENCOUNTER 2024-03-12 08:20 | Day surgery (SDC) | payer OTHER, SELFPAY ==
[2023-03-03 13:21] VITALS: BMI 24.0
[2024-03-08 14:56] VITALS: BMI 20.5
[2024-03-12 08:40] VITALS: BP 116/63; PULSE 62; RESP 16; TEMP 36.2; O2SAT 99; BMI 20.5
[2024-03-12] MEDS: LACTATED RINGERS 1,000 ML 42 ML IV (08:59)
--- NOTE | 2024-03-12 09:27 | SUR.OPER ---
Lithotomy on padded OR bed, head on pillow, arms secured on padded arm boards at <90 degrees abduction. Legs secured in padded yellow fins stirrups.
--- NOTE | 2024-03-12 09:40 | P.HPOB_ITS ---
History of Present Illness History of Present Illness Reason for admission: other (Dyspareunia, tightened introitus) Narrative: Maryjane Denny is a 74 year old female who presents today for a perineorrhaphy to release a tightened area of the introitus. She is having significant dyspareunia. FORMERLY [facility] Medical History (Updated 10/25/23 @ 15:35 by Negin Gold MD) Other plastic surgery for unacceptable cosmetic appearance Easy bruisability History of Mohs micrographic surgery for skin cancer Osteoarthritis Hypothyroid Seasonal allergies Degenerative joint disease (DJD) of hip Facet arthropathy, lumbar Spondylolisthesis at L4-L5 level Lumbosacral spondylosis Left hip pain Cervical spondylosis with radiculopathy (Unknown) Rotator cuff impingement syndrome of left shoulder Surgical History (Updated 03/08/24 @ 15:01 by Lissette Varner RN) History of gynecologic surgery (03/03/23) History of total replacement of left shoulder joint (12/02/21) [place] teeth extracted History of total right hip arthroplasty (07/14/21) 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) History of tonsillectomy and adenoidectomy History of facelift Social History household members: none Smoking Status: Former smoker alcohol intake: former Meds Home Medications and Allergies Home Medications Medication Instructions Recorded Confirmed Type cholecalciferol (vitamin D3) 125 5,000 unit PO DAILY 07/04/19 02/01/24 History mcg (5,000 unit) capsule ascorbic acid (vitamin C) 1,000 mg 500 mg PO DAILY 10/31/19 02/01/24 History tablet krill oil 500 mg capsule 500 mg PO DAILY 04/30/21 02/01/24 History levothyroxine 50 mcg capsule 50 mcg PO DAILY 04/30/21 03/12/24 History pseudoephedrine HCl 30 mg capsule 30 mg PO QD-BID PRN seasonal 04/30/21 02/01/24 History allergies vitamin B complex 1 cap PO DAILY 04/30/21 02/01/24 History acetaminophen 500 mg capsule 500 mg PO Q4-5H pain #90 caps 05/08/21 03/12/24 Rx bisacodyl 5 mg tablet,delayed 5 mg PO ONCE 12/28/22 02/01/24 History release propylene glycol 0.6 % eye drops 1 drp EYE-BOTH DAILY dry 12/28/22 02/01/24 Hi story (Systane Balance) tretinoin 0.025 % topical cream 1 applic topical BEDTIME 12/28/22 02/01/24 History solifenacin 5 mg tablet 2.5 mg (1/2 x 5 mg) PO DAILY #90 10/27/23 03/12/24 Rx tabs estradiol 0.01% (0.1 mg/gram) 0.25 g vaginal 2XW #42.5 grams 02/01/24 03/12/24 Rx vaginal cream (Estrace) estradiol 10 mcg vaginal tablet 10 mcg vaginal 2XW #24 tabs 02/01/24 03/12/24 Rx Allergies Allergy/AdvReac Type Severity Reaction Status Date / Time No Known Drug Allergies Allergy Verified 03/12/24 08:39 Exam Vital Signs (past 8 hours): - 03/12/24 08:40 Temperature 97.1 F L Pulse Rate 62 Respiratory Rate 16 Blood Pressure 116/63 Pulse Oximetry 99 Oxygen Delivery Method Room Air Oxygen Delivery Method Room Air Narrative Exam Narrative: HEENT: No thyromegaly, no anterior cervical or supraclavicular lymphadenopathy. Lungs:Clear to auscultation bilaterally, no wheezes. Cardiovascular: Regular rate and rhythm, no murmurs, rubs, or gallops. Abdomen: No scars. No hepatosplenomegaly. No masses palpable. External genitalia: Tightened introitus. Atrophy Vagina: Atrophy Assessment & Plan Assessment & Plan narrative: Assessment: 74-year-old with significant dyspareunia and I tightened introitus Plan: Perineorrhaphy with release of tightened area with a ?Z? incision The risks, benefits, and alternatives to the procedure were explained to the patient. The risks including bleeding and infection. She understands these risks and agrees to proceed. A full par Q was held and consent form was signed.
[2024-03-12] MEDS: BUPIVACAINE 0.25% (PF) 30 ML, EPINEPHrine 0.15 MG INJ (10:26)
[2024-03-12 10:35] VITALS: BP 95/49; PULSE 63; RESP 14; TEMP 36.2; O2SAT 96
--- NOTE | 2024-03-12 10:38 | PM.GYNOP.1 ---
Operative Date/Time/Diagnoses Date of procedure: 03/12/24 Time of procedure: 10:38 Pre-op diagnosis: Dyspareunia Tightened introitus Post-op diagnosis: same Procedure & Clinicians Procedure: Procedures Operation Date: 03/12/24 09:45 Actual Procedure Side Surgeon p Perineorrhaphy Negin Gold MD Indications: Dyspareunia Tight introitus Surgeon: Negin Gold Anesthesia Type: General and Local Operative Notes Findings: 2 cm opening to the introitus Closure Type: primary Specimen(s): none Estimated blood loss (mL): 5 Blood products transfused: none Procedure in detail: After informed consent was obtained, the patient was taken to the operating room where she was placed in the dorsal supine position. After adequate LMA general anesthesia was achieved, she was placed in the dorsal lithotomy position, and prepped and draped in the usual sterile fashion. A time-out was performed. 10 cc of 0.25% Marcaine were injected at the introitus. A ?Z? incision was made starting at the patient's right side ending on the patient's left side. The incision was then closed horizontally with 2-0 chromic with simple interrupted sutures. Hemostasis was achieved. Five more cc of 0.25% Marcaine were injected. Sponge, lap, and instrument counts were correct x2. The patient tolerated the procedure well, and was taken to PACU in stable condition. Complications: none Post-operative Condition: stable Disposition: PACU Plan for aftercare: Home after recovery
[2024-03-12 10:40] VITALS: BP 103/55; PULSE 62; RESP 14; O2SAT 96
[2024-03-12 10:45] VITALS: BP 95/43; PULSE 65; RESP 14; O2SAT 96
[2024-03-12] MEDS: OXYCODONE IR 5 MG TABLET PO (10:47)
[2024-03-12 10:52] VITALS: BP 100/60; PULSE 64; RESP 16; TEMP 36.8; O2SAT 96
== END 2024-03-12 11:01 | disposition home or self-care (01) ==
PROVIDERS: Family Provider Physician Assistant Medical; PCP Physician Assistant Medical; Referring Provider Obstetrics & Gynecology; Visit Provider Obstetrics & Gynecology
PROC: (CPT 56810; principal; 2024-03-12 09:45)
DX: N89.6 Tight hymenal ring (principal); N94.10 Unspecified dyspareunia
CPT/HCPCS: 56810; J0171; J1100; J1170; J2405; J2704

== ENCOUNTER → 2024-08-20 11:32 | Outpatient (CLI) | payer OTHER, SELFPAY ==
[2023-03-03 13:21] VITALS: BMI 24.0
--- NOTE | 2024-08-20 11:33 | DI.MG.S_ITS ---
BILATERAL DIGITAL SCREENING MAMMOGRAM 3D/2D WITH CAD: 08/20/2024 CLINICAL: Routine screening. Family history of breast cancer. Comparison is made to exams dated: 07/18/2023 mammogram - [facility], 06/09/2022 mammogram, and 06/08/2021 mammogram - [facility]. There are scattered areas of fibroglandular density (category b / 25%-50% glandular tissue). Current study was also evaluated with a Computer Aided Detection (CAD) system. There are benign vascular calcifications in the right breast. No significant masses, calcifications, or other findings are seen in either breast. There has been no significant interval change. IMPRESSION: BENIGN There is no mammographic evidence of malignancy. A 1 year screening mammogram is recommended. Based on the Tyrer Cuzick model (a risk assessment model) the patient's lifetime risk is 2.3% and her 10 year risk is 2.3%. According to the ACR, ACS, and NCCN guidelines, an annual breast MRI exam along with mammogram is recommended if the patient's lifetime risk is 20% or greater. This exam was interpreted at Station ID: [id number]. NOTE: For mammograms, a report in lay terms will be sent to the patient. Approximately 15% of breast malignancies will not be visualized mammographically. In the management of a palpable breast mass, a negative mammogram must not discourage biopsy of a clinically suspicious lesion. Electronically Signed By: Jerzy grijalva/marvin:08/20/2024 16:50:29 letter sent: Normal Exam ACR BI-RADS Category 2: Benign
== END ==
LOC: MAMMO 11:33
PROVIDERS: Family Provider Physician Assistant Medical; PCP Physician Assistant Medical; Referring Provider Physician Assistant Medical; Visit Provider Physician Assistant Medical
DX: Z12.31 Encounter for screening mammogram for malignant neoplasm of breast (principal); Z80.3 Family history of malignant neoplasm of breast
CPT/HCPCS: 77063; 77067

== ENCOUNTER → 2025-07-22 10:40 | Outpatient (CLI) | payer OTHER, SELFPAY ==
[2023-03-03 13:21] VITALS: BMI 24.0
--- NOTE | 2025-07-22 10:42 | DI.RAD.S_ITS ---
PROCEDURE: XR DEXA AXIAL SKELETON
== END ==
LOC: RAD 10:41
PROVIDERS: Family Provider Physician Assistant Medical; PCP Physician Assistant Medical; Referring Provider Physician Assistant Medical; Visit Provider Internal Medicine Endocrinology, Diabetes & Metabolism
DX: M81.0 Age-related osteoporosis without current pathological fracture (principal)
CPT/HCPCS: 77080